=== PATIENT | female | born 1960 | race Hispanic/Latino ===

== ENCOUNTER 2016-03-29 13:15 | Emergency (ER) | payer OTHER ==
[~2016-03-29 13:15] MED LIST: ADVAIR 250-501 EACH INH; ALBUTEROL2.5 MG/3 M INH/SOL; ALENDRONATE SOD70 M2 PO; ATORVASTATIN CA20 M1 PO; CALCIUM + VITA1 EAC1 PO; CELEBREX100 M1 PO; CIPRO500 M1 PO; DICYCLOMINE HCL10 M1 PO; FLAGYL500 MG PO; HYDROXYZINE HCL25 M2 PO; LEVOTHYROXINE150 MCG PO; LISINOPRIL10 M1 PO; LOMOTIL 2.5-0.1 EACH PO; LYRICA50 M1 PO; METFORMIN HCL1000 M1 PO; METRONIDAZOLE250 M1 PO; MONTELUKAST SOD10 M1 PO; NASONEX17 GM NAS; PANTOPRAZOLE SO40 M1 PO; PERCOCET 5-3251 EACH PO; PRILOSEC OTC20 M1 PO; VICODIN 5-3001 EACH PO; ZOFRAN ODT4 M1 SL; ZOFRAN4 M2 PO
--- NOTE | 2016-03-29 13:42 | ED GI/GU/ABDOMINAL COMPLAINT ---
History of Present Illness General Chief Complaint: Nausea, Vomiting, Diarrhea Stated Complaint: NVD Source: patient, family, old records Exam Limitations: language barrier Allergies Coded Allergies: Penicillins (RASH AND ITCHING 10/17/15) shellfish derived (RASH ITCHING 10/17/15) Reconcile Medications Albuterol Sulfate 2.5 MG/3 ML VIAL.NEB 1 Vial INH/STEFAN Q6H RESPIRATORY ( Reported) Alendronate Sodium 70 MG TABLET 1 TAB PO QW BONE (Reported) in the morning, at least 30 minutes before the first food, beverage, or medication of the day Atorvastatin Calcium 20 MG TABLET 1 TAB PO QPM CHOLESTEROL (Reported) Calcium Carbonate/Vitamin D3 (Calcium + Vitamin D Tablet) 1 EACH TABLET 1 TAB PO BID SUPPLEMENT (Reported) Celecoxib (Celebrex) 100 MG CAPSULE 1 CAP PO BID PAIN (Reported) Dicyclomine Hydrochloride (Bentyl) 10 MG CAPSULE 1 CAP PO TID PRN abdominal cramping Dicyclomine Hydrochloride (Bentyl) 10 MG CAPSULE 1 CAP PO TID PRN abdominal cramping/pain Fluticasone Propionate (Flonase Allergy Relief) 50 MCG/ACTUATION SPRAY.SUSP ALLERGIES (Reported) Fluticasone/Salmeterol (Advair 250-50 Diskus) 1 EACH BLST.W.DEV 1 PUF INH BID RESPIRATORY (Reported) Hydrochlorothiazide 12.5 MG TABLET 1 TAB PO DAILY WATER PILL (Reported) Hydroxyzine HCl 25 MG TABLET 1 TAB PO 4 TIMES/DAY UNKNOWN (Reported) Levothyroxine Sodium 150 MCG TABLET 1 TAB PO DAILY AC THYROID (Reported) Lisinopril 10 MG TABLET 1 TAB PO DAILY BP (Reported) Metformin HCl 1,000 MG TABLET 1 TAB PO BID DIABETES (Reported) Montelukast Sodium 10 MG TABLET 1 TAB PO DAILY ALLERGIES/ASTHMA (Reported) Ondansetron (Zofran Odt) 4 MG TAB.RAPDIS 1 TAB SL TID PRN nausea Ondansetron (Zofran Odt) 4 MG TAB.RAPDIS 1 TAB SL TID PRN nausea Pantoprazole Sodium 40 MG TABLET.DR 1 TAB PO DAILY GI (Reported) Pregabalin (Lyrica) 50 MG CAPSULE 1 CAP PO BID PAIN (Reported) Tramadol HCl 50 MG TABLET 1-2 TAB PO Q6 PRN pain Tramadol HCl 50 MG TABLET 1-2 TAB PO Q6 PRN pain Triage Note: PT PRESENTS TO ER C/O OF DIARRHEA AND NAUSEA X 2 DAYS. PT ALSO C/O OF LUQ PAIN AND A HEADACHE Triage Nurses Notes Reviewed? yes ? n Is pt currently ? No HPI: Patient is a 55 year old female presents complaining of diarrhea x 3 dasy with left sided abdominal cramping. Associated nausea. Cramping is continuous, moderate, left lower quadrant. Approximately 7 episodes of watery stool with a small amount of blood present. Patient takes metformin, dose was increased 2 weeks ago. Otherwise no other recent changes in her medications. Patient has been on antibiotics within the past 1 month. Denies vomiting or fevers. (LILIA CHAVEZ) Vital Signs & Intake/Output Vital Signs & Intake/Output Vital Signs Date Time Temp Pulse Resp B/P Pulse O2 O2 Flow FiO2 Ox Delivery Rate 03/29 1850 97.4 68 16 121/57 98 03/29 1741 68 102/58 94 Room Air 03/29 1729 97.8 72 16 92/53 94 Room Air 03/29 1517 96.8 70 22 100/58 98 Room Air 03/29 1400 Room Air 03/29 1319 98.4 72 20 118/74 97 Room Air Past History Travel History Traveled to [place] past 21 day No Medical History Any Pertinent Medical History? see below for history Neurological: NONE EENT: NONE Cardiovascular: hyperlipidemia Respiratory: asthma Gastrointestinal: NONE Hepatic: NONE Renal: NONE Musculoskeletal: NONE Psychiatric: NONE Endocrine: diabetes, hypothyroidism Blood Disorders: NONE Cancer(s): NONE Surgical History Surgical History: non-contributory Psychosocial History What is your primary language Georgian Tobacco Use: Never used Family History Hx Contributory? No (LILIA CHAVEZ) Review of Systems Review of Systems Constitutional: Denies: chills, fever. EENTM: Reports: no symptoms. Respiratory: Denies: cough, short of breath. Cardiovascular: Denies: chest pain. GI: Reports: see HPI. Genitourinary: Reports: no symptoms. Musculoskeletal: Denies: back pain. Skin: Reports: no symptoms. Neurological/Psychological: Reports: no symptoms. Hematologic/Endocrine: Reports: no symptoms. Immunologic/Allergic: Reports: no symptoms. (LILIA CHAVEZ) Physical Exam Physical Exam General Appearance: well developed/nourished, alert, awake, obese Head: atraumatic, normal appearance Eyes: Bilateral: normal appearance, PERRL, EOMI. Ears, Nose, Throat, Mouth: hearing grossly normal, moist mucous membrane Neck: normal inspection, supple, full range of motion Respiratory: normal breath sounds, chest non-tender, no respiratory distress, lungs clear Cardiovascular: regular rate/rhythm Gastrointestinal: soft, HYPOACTIVE BOWEL SOUNDS, LEFT UPPER AND LEFT LOWER QUADRANT TENDERNESS. nO REBOUND OR GUARDING. Rectal: external hemorrhoid pink tender. Stool brown. Trace heme positive Back: normal inspection, normal range of motion Extremities: normal range of motion Neurologic/Psych: no motor/sensory deficits, awake, alert, oriented x 3, normal gait, normal mood/affect Skin: intact, normal color, warm/dry Core Measures ACS in differential dx? No Severe Sepsis Present: No Septic Shock Present: No (NEHA COLBERT,LILIA) Progress Differential Diagnosis: AAA, appendicitis, biliary colic, cholecystitis, diverticulitis, ischemic bowel, inflamm bowel dis, kidney stone, ovarian torsion , perforated viscous, UTI/pyelo Diagnostic Imaging: Viewed by Me: CT Scan. Discussed w/RAD: CT Scan. Radiology Impression: PATIENT: GIOVANNY OSCAR PRESENT AGE: 55 PATIENT ACCOUNT NO: [id number] : 58 LOCATION: [facility] ORDERING PHYSICIAN: LILIA COLBERT SERVICE DATE: 03/29/16970 EXAM TYPE: CAT - CT ABD & PELVIS W/O IV CONTRAS EXAMINATION: CT ABDOMEN AND PELVIS WITHOUT CONTRAST CLINICAL INFORMATION: Intra-abdominal infection. COMPARISON: CT scan abdomen pelvis 01/27/2016 TECHNIQUE: Multidetector volumetric imaging was performed from the superior aspect of the liver through the pubic symphysis. Sagittal and coronal reformatted images were obtained on the technologist's workstation. No oral or intravenous contrast. DLP: 1215.63 mGy-cm. FINDINGS: LUNG BASES: The visualized lung bases are unremarkable. LIVER, GALLBLADDER, AND BILIARY TREE: Diffuse low attenuation of liver parenchyma due to fatty change. Mild hepatomegaly. Right lobe of liver measures 22.6 cm superior inferior. No focal liver lesion. Gallbladder is absent. No bile duct dilatation PANCREAS: Unremarkable. SPLEEN: Unremarkable. ADRENAL GLANDS: Unremarkable. 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 The upper pole moiety in the lower pole moiety ureter diffuse at the mid abdomen with a single ureter entering the bladder trigone. No hydronephrosis. No renal or ureteral calculus. BLADDER: Punctate calcification associated with the wall at the dome of the bladder is unchanged since prior CAT scan. GASTROINTESTINAL TRACT: There is mild diverticulosis of the sigmoid colon. No diverticulitis. No acute change of the bowel. No bowel obstruction. No bowel wall thickening or edema. Moderate volume of stool in colon. The appendix is normal. The small bowel loops are unremarkable ABDOMINAL WALL: Small fat-containing umbilical hernia LYMPH NODES: Normal. VASCULAR: Unremarkable. PELVIC VISCERA: Uterus is absent. No adnexal abnormality. OSSEOUS STRUCTURES: Unremarkable. IMPRESSION: No acute abnormality CT scan abdomen pelvis. Hepatomegaly with diffuse fatty change of liver. DICTATED BY: KIMBER FARNSWORTH MD DATE/TIME DICTATED:03/29/161617 BATCH MIXER OPERATOR :[id number] DATE/TIME TRANSCRIBED:03/29/161617 CONFIDENTIAL, DO NOT COPY WITHOUT APPROPRIATE AUTHORIZATION. <Electronically signed in Other Vendor System> SIGNED BY: KIMBER FARNSWORTH MD 03/29/161627 Initial ED EKG: none (LILIA CHAVEZ) Plan of Care: Orders Procedure Date/time Status URINALYSIS 03/29 1741 Complete LACTIC ACID 03/29 1654 Complete CULTURE,STOOL 03/29 1354 Active C.DIFFICILE 03/29 1354 Active LACTIC ACID 03/29 1354 Complete COMPREHENSIVE METABOLIC PANEL 03/29 1354 Complete CBC WITHOUT DIFFERENTIAL 03/29 1354 Complete Laboratory Tests 03/29/16 1730: Urine Color YEL, Urine Clarity CLEAR, Urine pH 6.0, Ur Specific [place] >= 1.030 , Urine Protein NEG, Urine Ketones TRACE H, Urine Nitrite NEG, Urine Bilirubin NEG, Urine Urobilinogen 0.2, Ur Leukocyte Esterase NEG, Ur Microscopic SEDIMENT EXAMINED, Urine RBC RARE, Urine WBC 1-3 H, Ur Epithelial Cells MANY H, Urine Crystals 4+ CA OX H, Urine Hemoglobin TRACE-LYSED, Urine Glucose NEG 03/29/16 1650: Lactic Acid 2.3 H 03/29/16 1403: Anion Gap 11, Estimated GFR > 60, BUN/Creatinine Ratio 25.0, Glucose 136 H, Lactic Acid 3.1 H, Calcium 9.7, Total Bilirubin 0.3, AST 24, ALT 36, Alkaline Phosphatase 80, Total Protein 7.2, Albumin 4.1, Globulin 3.1, Albumin/Globulin Ratio 1.3, CBC w Diff NO MAN DIFF REQ, RBC 4.36, MCV 89.1, MCH 30.5, RDW 14.1, MPV 7.9, Gran % 60.2, Lymphocytes % 32.3, Monocytes % 6.5, Eosinophils % 0.8, Basophils % 0.2, Absolute Granulocytes 5.0, Absolute Lymphocytes 2.7, Absolute Monocytes 0.5, Absolute Eosinophils 0.1, Absolute Basophils 0, PUBS MCHC 34.2 Microbiology 03/29 135 STOOL: Clostridium difficile Toxin A & B - ORD 03/29 1353 STOOL: Stool Culture - ORD Patient reevaluated multiple times. With patient's elevated lactic acid CT scan ordered to rule out intra-abdominal infection 1739: Results of labs and CT scan discussed with patient and her . Patient continues with nausea, additional Zofran ordered. Patient in the emergency department for greater than 5.5 hours with no episodes of diarrhea. Patient nontoxic appearing, appears stable for discharge with outpatient follow-up (LILIA CHAVEZ) Departure Departure Time of Disposition: 1856 Disposition: HOME OR SELF CARE Condition: Stable Clinical Impression Primary Impression: Left sided abdominal pain Referrals: CHEYENNE GUZMAN,RUEL Mason. PATIENT HAS NO PRIMARY CARE DR (PCP/Family) Additional Instructions: Follow-up with her e tailer next week for further evaluation. Call Friday for appointment. Return to the emergency department if unable to stay hydrated, fevers, or worsening of symptoms. Departure Forms: Customer Survey General Discharge Information Prescriptions: Current Visit Scripts Tramadol HCl 1-2 TAB PO Q6 PRN pain #15 TAB Dicyclomine Hydrochloride (Bentyl) 1 CAP PO TID PRN abdominal cramping #12 CAP Ondansetron (Zofran Odt) 1 TAB SL TID PRN nausea #10 TAB Tramadol HCl 1-2 TAB PO Q6 PRN pain #15 TAB Ondansetron (Zofran Odt) 1 TAB SL TID PRN nausea #10 TAB Dicyclomine Hydrochloride (Bentyl) 1 CAP PO TID PRN abdominal cramping/pain #12 CAP (LILIA CHAVEZ) PA/ADJUNCT PROFESSOR OF [employer] HISTORY Co-Sign Statement Statement: ED Attending supervision documentation- [] I saw and evaluated the patient. I have also reviewed all the pertinent lab results and diagnostic results. I agree with the findings and the plan of care as documented in the PA's/ADJUNCT PROFESSOR OF [employer]ISTORY's documentation. [X] I have reviewed the ED Record and agree with the PA's/ADJUNCT PROFESSOR OF [employer] HISTORY's documentation. [] Additions or exceptions (if any) to the PAs/ADJUNCT PROFESSOR OF [employer]ISTORY's note and plan are summarized below: [] (MELIZA GUZMAN,MAMIE)
[2016-03-29 14:09] LABS: ABSOLUTE BASOPHIL COUNT 0 /CUMM (0.0-0.2); ABSOLUTE EOSINOPHIL COUNT 0.1 /CUMM (0.0-0.7); ABSOLUTE LYMPH COUNT 2.7 /CUMM (1.2-3.4); ABSOLUTE MONOCYTE COUNT 0.5 /CUMM (0.10-0.60); BASOPHIL % 0.2 % (0.0-2.0); EOSINOPHIL % 0.8 % (0-5); GRANULOCYTE % 60.2 % (42.2-75.2); HEMATOCRIT 38.8 % (37-47); MEAN CORPUSCULAR HGB 30.5 PG (27.0-31.0); MEAN CORPUSCULAR HGB CONC 34.2 G/DL (33.0-37.0); MEAN CORPUSCULAR VOLUME 89.1 FL (81.0-99.0); MEAN PLATELET VOLUME 7.9 FL (7.4-10.4); PLATELET COUNT 299 /CUMM (130-400); RBC DISTRIBUTION WIDTH 14.1 % (11.5-14.5); RED BLOOD CELL CT 4.36 /CUMM (4.20-5.40); WHITE BLOOD CELL COUNT 8.2 /CUMM (4.8-10.8)
[2016-03-29] MEDS ORDERED: HYDROCHLOROTH12.5 M2 PO (14:39)
[2016-03-29] MEDS ORDERED: FLONASE ALLERG9.9 ML (14:40)
--- NOTE | 2016-03-29 16:28 | CT SCAN REPORT ---
EXAMINATION: CT ABDOMEN AND PELVIS WITHOUT CONTRAST CLINICAL INFORMATION: Intra-abdominal infection. COMPARISON: CT scan abdomen pelvis 01/27/2016 TECHNIQUE: Multidetector volumetric imaging was performed from the superior aspect of the liver through the pubic symphysis. Sagittal and coronal reformatted images were obtained on the technologist's workstation. No oral or intravenous contrast. DLP: 1215.63 mGy-cm. FINDINGS: LUNG BASES: The visualized lung bases are unremarkable. LIVER, GALLBLADDER, AND BILIARY TREE: Diffuse low attenuation of liver parenchyma due to fatty change. Mild hepatomegaly. Right lobe of liver measures 22.6 cm superior inferior. No focal liver lesion. Gallbladder is absent. No bile duct dilatation PANCREAS: Unremarkable. SPLEEN: Unremarkable. ADRENAL GLANDS: Unremarkable. 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 The upper pole moiety in the lower pole moiety ureter diffuse at the mid abdomen with a single ureter entering the bladder trigone. No hydronephrosis. No renal or ureteral calculus. BLADDER: Punctate calcification associated with the wall at the dome of the bladder is unchanged since prior CAT scan. GASTROINTESTINAL TRACT: There is mild diverticulosis of the sigmoid colon. No diverticulitis. No acute change of the bowel. No bowel obstruction. No bowel wall thickening or edema. Moderate volume of stool in colon. The appendix is normal. The small bowel loops are unremarkable ABDOMINAL WALL: Small fat-containing umbilical hernia LYMPH NODES: Normal. VASCULAR: Unremarkable. PELVIC VISCERA: Uterus is absent. No adnexal abnormality. OSSEOUS STRUCTURES: Unremarkable. IMPRESSION: No acute abnormality CT scan abdomen pelvis. Hepatomegaly with diffuse fatty change of liver.
[2016-03-29 18:50] VITALS: BP 121/57
[2016-03-29] MEDS ORDERED: BENTYL10 M1 PO ×2 (18:59→19:13)
[2016-03-29] MEDS ORDERED: TRAMADOL HCL50 M1 PO ×2 (18:59→19:13)
[2016-03-29] MEDS ORDERED: ZOFRAN ODT4 M1 SL ×2 (18:59→19:13)
== END 2016-03-29 19:16 ==
LOC: ERH 13:15
PROVIDERS: Physician Assistant
DX: R10.12 Left upper quadrant pain (principal); R10.32 Left lower quadrant pain
CPT/HCPCS: 74176; 81001; 87045; 96372; 96374; 96375; 96376; J0500; J2405

== ENCOUNTER 2016-05-28 22:09 | Emergency (ER) | payer OTHER ==
[~2016-05-28] VITALS: Ht 152.4 cm; Wt 103.9 kg
[~2016-05-28 22:09] MED LIST changes: +BENTYL10 M1 PO; +FLONASE ALLERG9.9 ML; +HYDROCHLOROTH12.5 M2 PO; +TRAMADOL HCL50 M1 PO
[2016-05-28 22:44] VITALS: BP 122/74
--- NOTE | 2016-05-29 00:19 | ED UPPER/LOWER EXTREMITY COMPL ---
History of Present Illness General Chief Complaint: Lower Extremity Problems Stated Complaint: BILATERAL LEG PAIN AND BURNING KNEE TO FEET Source: patient Exam Limitations: no limitations Vital Signs & Intake/Output Vital Signs & Intake/Output Vital Signs Date Time Temp Pulse Resp B/P Pulse O2 O2 Flow FiO2 Ox Delivery Rate 05/29 0150 Room Air 05/28 2244 97.3 88 20 122/74 96 Room Air ED Intake and Output 05/29 0000 05/28 1200 Intake Total Output Total Balance Patient 229 lb Weight Allergies Coded Allergies: Penicillins (RASH AND ITCHING 10/17/15) shellfish derived (RASH ITCHING 10/17/15) Reconcile Medications Albuterol Sulfate 2.5 MG/3 ML VIAL.NEB 1 Vial INH/STEFAN Q6H RESPIRATORY ( Reported) Alendronate Sodium 70 MG TABLET 1 TAB PO QW BONE (Reported) in the morning, at least 30 minutes before the first food, beverage, or medication of the day Atorvastatin Calcium 20 MG TABLET 1 TAB PO QPM CHOLESTEROL (Reported) Calcium Carbonate/Vitamin D3 (Calcium + Vitamin D Tablet) 1 EACH TABLET 1 TAB PO BID SUPPLEMENT (Reported) Celecoxib (Celebrex) 100 MG CAPSULE 1 CAP PO BID PAIN (Reported) Dicyclomine Hydrochloride (Bentyl) 10 MG CAPSULE 1 CAP PO TID PRN abdominal cramping Dicyclomine Hydrochloride (Bentyl) 10 MG CAPSULE 1 CAP PO TID PRN abdominal cramping/pain Fluticasone Propionate (Flonase Allergy Relief) 50 MCG/ACTUATION SPRAY.SUSP ALLERGIES (Reported) Fluticasone/Salmeterol (Advair 250-50 Diskus) 1 EACH BLST.W.DEV 1 PUF INH BID RESPIRATORY (Reported) Hydrochlorothiazide 12.5 MG TABLET 1 TAB PO DAILY WATER PILL (Reported) Hydroxyzine HCl 25 MG TABLET 1 TAB PO 4 TIMES/DAY UNKNOWN (Reported) Levothyroxine Sodium 150 MCG TABLET 1 TAB PO DAILY AC THYROID (Reported) Lisinopril 10 MG TABLET 1 TAB PO DAILY BP (Reported) Metformin HCl 1,000 MG TABLET 1 TAB PO BID DIABETES (Reported) Montelukast Sodium 10 MG TABLET 1 TAB PO DAILY ALLERGIES/ASTHMA (Reported) Ondansetron (Zofran Odt) 4 MG TAB.RAPDIS 1 TAB SL TID PRN nausea Ondansetron (Zofran Odt) 4 MG TAB.RAPDIS 1 TAB SL TID PRN nausea Pantoprazole Sodium 40 MG TABLET.DR 1 TAB PO DAILY GI (Reported) Pregabalin (Lyrica) 50 MG CAPSULE 1 CAP PO BID PAIN (Reported) Tramadol HCl 50 MG TABLET 1-2 TAB PO Q6 PRN pain Tramadol HCl 50 MG TABLET 1-2 TAB PO Q6 PRN pain Triage Note: RECEIVED 55 YO FEMALE C/O PAIN ANDS BURNING FROM KNEE DOWN BILATERALLY, WORSE ON LEFT FOOT, STARTED TODAY. PT ALSO REPORTS DISCOLORATION. Triage Nurses Notes Reviewed? yes Onset: Gradual Duration: day(s): Severity: mild Pain/Injury Location: Left: Ankle. Method of Injury: unknown Modifying Factors: Worsens With: movement. Associated Symptoms: swelling HPI: 55yo woman left ankle pain and swelling since this morning. She notes that it is difficult to ambulate. She does not recall any trauma. She is otherwise well. Past History Travel History Traveled to [place] past 21 day No Medical History Any Pertinent Medical History? see below for history Neurological: NONE EENT: NONE Cardiovascular: hyperlipidemia Respiratory: asthma Gastrointestinal: NONE Hepatic: NONE Renal: NONE Musculoskeletal: NONE Psychiatric: NONE Endocrine: diabetes, hypothyroidism Blood Disorders: NONE Cancer(s): NONE Surgical History Surgical History: non-contributory Psychosocial History What is your primary language Irish Tobacco Use: Never used Family History Hx Contributory? No Review of Systems Review of Systems Constitutional: Reports: no symptoms. EENTM: Reports: no symptoms. Respiratory: Reports: no symptoms. Cardiovascular: Reports: no symptoms. Gastrointestinal/Abdominal: Reports: no symptoms. Genitourinary: Reports: no symptoms. Musculoskeletal: Reports: no symptoms. Skin: Reports: no symptoms. Neurological/Psychological: Reports: no symptoms. Hematologic/Endocrine: Reports: no symptoms. Immunological: Reports: no symptoms. All Other Systems: Reviewed and Negative Physical Exam Physical Exam General Appearance: well developed/nourished, mild distress Head: atraumatic Eyes: Bilateral: normal appearance. Ears, Nose, Throat: normal pharynx, normal ENT inspection, hearing grossly normal Neck: normal inspection, supple Cardiovascular/Respiratory: regular rate/rhythm Back: normal inspection Leg Left: left ankle... diffuse swelling with tenderness on lateral mallolus. pain with inversion of left ankle. Skin: intact, normal color, warm/dry Lymphatic: no anterior cervical abbi Progress Differential Diagnosis: contusion, fracture, sprain Plan of Care: Orders Procedure Date/time Status Durable Medical Equipment 05/29 125 Active Diagnostic Imaging: Viewed by Me: Radiology Read. Discussed w/RAD: Radiology Read. Radiology Impression: LEFT ANKLE... NEGATIVE Comments: PATIENT: GIOVANNY OSCAR PRESENT AGE: 55 PATIENT ACCOUNT NO: [id number] : 58 LOCATION: [facility] ORDERING PHYSICIAN: BLANCA ALFRED MD SERVICE DATE: 05/29/16 EXAM TYPE: RAD - XRY-ANKLE 3 OR MORE VIEWS L EXAMINATION: XR ANKLE, LEFT CLINICAL INFORMATION: Left ankle pain. COMPARISON: None TECHNIQUE: AP, lateral, and mortise views of the left ankle. FINDINGS: No fracture. No dislocation. Ankle mortise is congruent. No soft tissue abnormality. IMPRESSION: Normal left ankle. DICTATED BY: KIMBER FARNSWORTH MD DATE/TIME DICTATED:05/29/1658 BODYWORK THERAPIST:[id number] DATE/TIME TRANSCRIBED:05/29/1658 CONFIDENTIAL, DO NOT COPY WITHOUT APPROPRIATE AUTHORIZATION. <Electronically signed in Other Vendor System> SIGNED BY: KIMBER FARNSWORTH MD 05/29/16102 Departure Departure Disposition: HOME OR SELF CARE Condition: Stable Clinical Impression Primary Impression: Left ankle sprain Referrals: ALO VALENTINO MD (PCP/Family) Departure Forms: Customer Survey General Discharge Information Comments mary bandage placed on left ankle by nursing team.
--- NOTE | 2016-05-29 01:03 | RADIOLOGY REPORT ---
EXAMINATION: XR ANKLE, LEFT CLINICAL INFORMATION: Left ankle pain. COMPARISON: None TECHNIQUE: AP, lateral, and mortise views of the left ankle. FINDINGS: No fracture. No dislocation. Ankle mortise is congruent. No soft tissue abnormality. IMPRESSION: Normal left ankle.
== END 2016-05-29 01:57 ==
LOC: ERH 22:09
DX: S93.402A Sprain of unspecified ligament of left ankle, initial encounter (principal); X58.XXXA Exposure to other specified factors, initial encounter; Y93.9 Activity, unspecified; Y92.9 Unspecified place or not applicable
CPT/HCPCS: 73610-LT

== ENCOUNTER 2016-07-22 16:05 | Emergency (ER) | payer OTHER ==
[~2016-07-22] VITALS: Ht 152.4 cm; Wt 108.0 kg
--- NOTE | 2016-07-22 16:35 | ED GENERAL ADULT ---
History of Present Illness General Chief Complaint: General Adult Stated Complaint: FACIAL NUMBNESS,LT ARM NUMBNESS,LUND X 1.5 HRS Source: patient, family Exam Limitations: no limitations Vital Signs & Intake/Output Vital Signs & Intake/Output Vital Signs Date Time Temp Pulse Resp B/P B/P Pulse O2 O2 Flow FiO2 Mean Ox Delivery Rate 07/22 1842 97.4 70 18 110/66 98 Room Air 07/22 1728 Room Air Room Air 07/22 1613 98.1 78 16 137/83 96 Room Air Allergies Coded Allergies: Penicillins (RASH AND ITCHING 10/17/15) shellfish derived (RASH ITCHING 10/17/15) Reconcile Medications Albuterol Sulfate 2.5 MG/3 ML VIAL.NEB 1 Vial INH/STEFAN Q6H RESPIRATORY ( Reported) Alendronate Sodium 70 MG TABLET 1 TAB PO QW BONE (Reported) in the morning, at least 30 minutes before the first food, beverage, or medication of the day Atorvastatin Calcium 20 MG TABLET 1 TAB PO QPM CHOLESTEROL (Reported) Calcium Carbonate/Vitamin D3 (Calcium + Vitamin D Tablet) 1 EACH TABLET 1 TAB PO BID SUPPLEMENT (Reported) Celecoxib (Celebrex) 100 MG CAPSULE 1 CAP PO BID PAIN (Reported) Dicyclomine Hydrochloride (Bentyl) 10 MG CAPSULE 1 CAP PO TID PRN abdominal cramping Dicyclomine Hydrochloride (Bentyl) 10 MG CAPSULE 1 CAP PO TID PRN abdominal cramping/pain Fluticasone Propionate (Flonase Allergy Relief) 50 MCG/ACTUATION SPRAY.SUSP ALLERGIES (Reported) Fluticasone/Salmeterol (Advair 250-50 Diskus) 1 EACH BLST.W.DEV 1 PUF INH BID RESPIRATORY (Reported) Hydrochlorothiazide 12.5 MG TABLET 1 TAB PO DAILY WATER PILL (Reported) Hydroxyzine HCl 25 MG TABLET 1 TAB PO 4 TIMES/DAY UNKNOWN (Reported) Levothyroxine Sodium 150 MCG TABLET 1 TAB PO DAILY AC THYROID (Reported) Lisinopril 10 MG TABLET 1 TAB PO DAILY BP (Reported) Metformin HCl 1,000 MG TABLET 1 TAB PO BID DIABETES (Reported) Montelukast Sodium 10 MG TABLET 1 TAB PO DAILY ALLERGIES/ASTHMA (Reported) Ondansetron (Zofran Odt) 4 MG TAB.RAPDIS 1 TAB SL TID PRN nausea Ondansetron (Zofran Odt) 4 MG TAB.RAPDIS 1 TAB SL TID PRN nausea Pantoprazole Sodium 40 MG TABLET. 1 TAB PO DAILY GI (Reported) Pregabalin (Lyrica) 50 MG CAPSULE 1 CAP PO BID PAIN (Reported) Tramadol HCl 50 MG TABLET 1-2 TAB PO Q6 PRN pain Tramadol HCl 50 MG TABLET 1-2 TAB PO Q6 PRN pain Triage Note: PT STATES SHE HAS HAD NUMBNESS AND BURNING FRO HER LEFT SHOULDER INTO HER ARMS. PT STATES SHE ALSO HAS A LUND THAT STARTED 1.5 HOURS AGO. PT HAS NOT CHANGE IN HER GAIT. BILAT UPPER EXT. HAS NO WEAKNESS. Triage Nurses Notes Reviewed? yes Onset: 2 hours ago Duration: hour(s):, constant Timing: single episode today HPI: 55-year-old female with a history of hyperlipidemia, asthma, diabetes, hypothyroid presenting with parietal headache, bilateral facial paresthesias, left upper extremity paresthesias of gradual onset 2 hours. Denies fevers, visual changes, weakness, lightheadedness, dizziness, chest pain, shortness of breath, nausea, vomiting. Has not tried anything for pain relief. (TAINA DONNELLY,BART) Past History Travel History Traveled to [place] past 21 day No Medical History Any Pertinent Medical History? see below for history Neurological: NONE EENT: NONE Cardiovascular: hyperlipidemia Respiratory: asthma Gastrointestinal: NONE Hepatic: NONE Renal: NONE Musculoskeletal: NONE Psychiatric: NONE Endocrine: diabetes, hypothyroidism Blood Disorders: NONE Cancer(s): NONE Surgical History Surgical History: non-contributory Psychosocial History What is your primary language French Tobacco Use: Never used ETOH Use: denies use Illicit Drug Use: denies illicit drug use Family History Hx Contributory? No (BART HER PA-C) Review of Systems Review of Systems Constitutional: Denies: chills, diaphoresis, fever, malaise, weakness. EENTM: Denies: blurred vision, double vision, visual changes, hearing changes. Respiratory: Denies: cough, short of breath, sputum production. Cardiovascular: Denies: chest pain, syncope. GI: Denies: abdominal pain, diarrhea, nausea, vomiting. Neurological/Psychological: Reports: headache, paresthesia, tingling. Denies: numbness. (BART HER PA-C) Physical Exam Physical Exam General Appearance: well developed/nourished, no apparent distress Head: atraumatic, no TTP Ears, Nose, Throat: normal ENT inspection Respiratory: normal breath sounds, lungs clear Cardiovascular: regular rate/rhythm Neurologic/Psych: no motor/sensory deficits, alert, oriented x 3, normal gait, Decreased facial sensation bilaterally, no other cranial nerve deficits Core Measures ACS in differential dx? Yes CVA/TIA Diagnosis: Yes Severe Sepsis Present: No Septic Shock Present: No (BART HER PA-C) Progress Differential Diagnoses I considered the following diagnoses in my evaluation of the patient: [Complex migraine versus TIA versus CVA versus Riggins's palsy versus trigeminal neuralgia versus MN.] Plan of Care: Orders Procedure Date/time Status EKG 07/22 1656 Active EKG to rule out cardiac etiology for left upper extremity paresthesias showed nonspecific T-wave inversions that are unchanged from prior EKG. Patient has complete resolution of symptoms after IV fluids, Toradol, Benadryl, Reglan. Patient likely with complex migraine, instructed to follow up with primary care provider for reevaluation. (BART HER PA-C) Initial ED EKG: normal sinus rhythm, Non specific T wave inversion unchanged from prior EKG (BART HER PA-C) Departure Departure Disposition: HOME OR SELF CARE Condition: Stable Clinical Impression Primary Impression: Headache Secondary Impressions: Paresthesia Referrals: ALO VALENTINO MD (PCP/Family) Additional Instructions: Follow-up with your primary care provider for reevaluation. Return to the ED for any new or worsening symptoms. Departure Forms: Customer Survey General Discharge Information (BART HER PA-C) PA/METAL ENGRAVER Co-Sign Statement Statement: ED Attending supervision documentation- [] I saw and evaluated the patient. I have also reviewed all the pertinent lab results and diagnostic results. I agree with the findings and the plan of care as documented in the PA's/METAL ENGRAVER's documentation. [x] I have reviewed the ED Record and agree with the PA's/METAL ENGRAVER's documentation. [] Additions or exceptions (if any) to the PAs/METAL ENGRAVER's note and plan are summarized below: [] (ANNA BUCKNER DO) Critical Care Note Critical Care Note Critical Care Time: non-applicable (BART HER PA-C)
[2016-07-22 18:42] VITALS: BP 110/66
== END 2016-07-22 19:06 ==
LOC: ERH 16:05
DX: R51 Headache (principal); R20.2 Paresthesia of skin
CPT/HCPCS: 93005; 93010; 96374; 96375; J1200; J1885; J2765

== ENCOUNTER 2016-08-14 12:15 | Emergency (ER) | payer OTHER ==
[~2016-08-14] VITALS: Ht 152.4 cm; Wt 101.2 kg
[2016-08-14 12:22] VITALS: BP 120/80
--- NOTE | 2016-08-14 12:26 | ED GENERAL ADULT ---
See Addendum History of Present Illness General Chief Complaint: Trunk Injury Stated Complaint: BILATERAL RIB PAIN Source: patient Exam Limitations: language barrier Vital Signs & Intake/Output Vital Signs & Intake/Output ED Intake and Output 08/15 0000 08/14 1200 Intake Total Output Total Balance Patient 223 lb Weight Weight Estimated Measurement Method Allergies Coded Allergies: Penicillins (RASH AND ITCHING 10/17/15) shellfish derived (RASH ITCHING 10/17/15) Reconcile Medications Albuterol Sulfate 2.5 MG/3 ML VIAL.NEB 1 Vial INH/STEFAN Q6H RESPIRATORY ( Reported) Alendronate Sodium 70 MG TABLET 1 TAB PO QW BONE (Reported) in the morning, at least 30 minutes before the first food, beverage, or medication of the day Atorvastatin Calcium 20 MG TABLET 1 TAB PO QPM CHOLESTEROL (Reported) Calcium Carbonate/Vitamin D3 (Calcium + Vitamin D Tablet) 1 EACH TABLET 1 TAB PO BID SUPPLEMENT (Reported) Celecoxib (Celebrex) 100 MG CAPSULE 1 CAP PO BID PAIN (Reported) Dicyclomine Hydrochloride (Bentyl) 10 MG CAPSULE 1 CAP PO TID PRN abdominal cramping/pain Fluticasone/Salmeterol (Advair 250-50 Diskus) 1 EACH BLST.W.DEV 1 PUF INH BID RESPIRATORY (Reported) Hydrochlorothiazide 12.5 MG TABLET 1 TAB PO DAILY WATER PILL (Reported) Hydroxyzine HCl 25 MG TABLET 1 TAB PO 4 TIMES/DAY UNKNOWN (Reported) Levothyroxine Sodium 150 MCG TABLET 1 TAB PO DAILY AC THYROID (Reported) Lisinopril 10 MG TABLET 1 TAB PO DAILY BP (Reported) Metformin HCl 1,000 MG TABLET 1 TAB PO BID DIABETES (Reported) Montelukast Sodium 10 MG TABLET 1 TAB PO DAILY ALLERGIES/ASTHMA (Reported) Naproxen (Naprosyn) 500 MG TABLET 1 TAB PO BID PRN pain Ondansetron (Zofran Odt) 4 MG TAB.RAPDIS 1 TAB SL TID PRN nausea Pantoprazole Sodium 40 MG TABLET.DR 1 TAB PO DAILY GI (Reported) Pregabalin (Lyrica) 50 MG CAPSULE 1 CAP PO BID PAIN (Reported) Tramadol HCl 50 MG TABLET 1-2 TAB PO Q6 PRN pain Triage Note: PT TO ED C/O PAIN UNDER B/L RIBS. STARTED LAST NIGHT, WORSE TODAY. DENIES INJURY. RA SATS 98%,NO OBVIOUS RESP DISTRESS NOTED. Triage Nurses Notes Reviewed? yes HPI: 55 year old female with a history of hyperlipidemia, diabetes, hypothyroid presenting with nonradiating pleuritic chest pain over the anterior lower ribs since last night. Denies trauma to the area. Has tried Tylenol with minimal improvement. Denies fevers, cough, sputum, chest tightness, shortness of breath. Denies abdominal pain, nausea, vomiting. (BART HER PA-C) Past History Travel History Traveled to [place] past 21 day No Medical History Any Pertinent Medical History? see below for history Neurological: NONE EENT: NONE Cardiovascular: hyperlipidemia Respiratory: asthma Gastrointestinal: NONE Hepatic: NONE Renal: NONE Musculoskeletal: NONE Psychiatric: NONE Endocrine: diabetes, hypothyroidism Blood Disorders: NONE Cancer(s): NONE Surgical History Surgical History: non-contributory Psychosocial History What is your primary language Ecuadorean Tobacco Use: Never used ETOH Use: denies use Illicit Drug Use: denies illicit drug use Family History Hx Contributory? No (BART HER PA-C) Review of Systems Review of Systems Constitutional: Denies: chills, fever, malaise, weakness. Respiratory: Denies: cough, hemoptysis, orthopnea, short of breath, sputum production, wheezing. Cardiovascular: Reports: chest pain. Denies: edema, orthopena, palpitations, syncope. GI: Reports: no symptoms. Genitourinary: Reports: no symptoms. Skin: Reports: no symptoms. Neurological/Psychological: Reports: no symptoms. (BART HER PA-C) Physical Exam Physical Exam General Appearance: well developed/nourished, no apparent distress, comfortable Head: atraumatic Respiratory: normal breath sounds, lungs clear, CW is sifnificantly TTP over bilateral anterior lower ribs/intercostal muscles, no abrasions/ecchymosis/other signs of trauma. Cardiovascular: regular rate/rhythm, normal peripheral pulses Gastrointestinal: normal bowel sounds, soft, non-tender Neurologic/Psych: awake, alert, oriented x 3 Skin: intact, normal color, warm/dry Core Measures ACS in differential dx? No CVA/TIA Diagnosis: No Severe Sepsis Present: No Septic Shock Present: No (BART HER PA-C) Progress Differential Diagnoses I considered the following diagnoses in my evaluation of the patient: [Muscle strain versus costochondritis versus pneumonia versus pleural effusion versus pleurisy versus cholecystitis versus cholelithiasis versus pancreatitis discovered versus gastritis] Plan of Care: Orders Procedure Date/time Status LIPASE 08/14 1313 Complete COMPREHENSIVE METABOLIC PANEL 08/14 1313 Complete CBC WITHOUT DIFFERENTIAL 08/14 1313 Complete EKG 08/14 1223 Active Laboratory Tests 08/14/16 1334: Anion Gap 16, Estimated GFR > 60, BUN/Creatinine Ratio 20.0, Glucose 157 H, Calcium 10.5 H, Total Bilirubin 0.4, AST 30, ALT 40, Alkaline Phosphatase 110, Total Protein 7.9, Albumin 4.6, Globulin 3.3, Albumin/Globulin Ratio 1.4, Lipase 118, CBC w Diff NO MAN DIFF REQ, RBC 4.60, MCV 89.7, MCH 30.0, RDW 14.1, MPV 8.1 , Gran % 58.5, Lymphocytes % 33.3, Monocytes % 6.5, Eosinophils % 0.6, Basophils % 1.1, Absolute Granulocytes 4.6, Absolute Lymphocytes 2.6, Absolute Monocytes 0.5, Absolute Eosinophils 0, Absolute Basophils 0.1, PUBS MCHC 33.5 Chest x-ray and labs unremarkable. Patient with significant pain relief after Toradol. Exam consistent with musculoskeletal pain. Instructed to use naproxen as needed for pain. (BART HER PA-C) Initial ED EKG: none (BART HER PA-C) Departure Departure Disposition: HOME OR SELF CARE Condition: Stable Clinical Impression Primary Impression: Muscle strain Referrals: ALO VALENTINO MD (PCP/Family) Additional Instructions: Use 500 mg of naproxen twice daily as needed for pain. Follow-up with her primary care provider in one to 2 days for reevaluation. Return to the ED for any worsening symptoms. Departure Forms: Customer Survey General Discharge Information Prescriptions: Current Visit Scripts Naproxen (Naprosyn) 1 TAB PO BID PRN pain #60 TAB (BART HER PA-C) PA/SKIN PEELING MACHINE OPERATOR Co-Sign Statement Statement: ED Attending supervision documentation- I saw and evaluated the patient. I have also reviewed all the pertinent lab results and diagnostic results. I agree with the findings and the plan of care as documented in the PA's/SKIN PEELING MACHINE OPERATOR's documentation. x I have reviewed the ED Record and agree with the PA's/SKIN PEELING MACHINE OPERATOR's documentation. [] Additions or exceptions (if any) to the PAs/SKIN PEELING MACHINE OPERATOR's note and plan are summarized below: [] (EDGAR GUZMAN,COMFORT) Critical Care Note Critical Care Note Critical Care Time: non-applicable (TAINA DONNELLY,BART)
[2016-08-14 13:42] LABS: ABSOLUTE BASOPHIL COUNT 0.1 /CUMM (0.0-0.2); ABSOLUTE EOSINOPHIL COUNT 0 /CUMM (0.0-0.7); ABSOLUTE GRANULOCYTE CT 4.6 /CUMM (1.4-6.5); ABSOLUTE LYMPH COUNT 2.6 /CUMM (1.2-3.4); ABSOLUTE MONOCYTE COUNT 0.5 /CUMM (0.10-0.60); BASOPHIL % 1.1 % (0.0-2.0); EOSINOPHIL % 0.6 % (0-5); GRANULOCYTE % 58.5 % (42.2-75.2); HEMATOCRIT 41.3 % (37-47); MEAN CORPUSCULAR HGB CONC 33.5 G/DL (33.0-37.0); MEAN CORPUSCULAR VOLUME 89.7 FL (81.0-99.0); MEAN PLATELET VOLUME 8.1 FL (7.4-10.4); PLATELET COUNT 367 /CUMM (130-400); RBC DISTRIBUTION WIDTH 14.1 % (11.5-14.5); WHITE BLOOD CELL COUNT 7.9 /CUMM (4.8-10.8)
--- NOTE | 2016-08-14 13:46 | RADIOLOGY REPORT ---
EXAMINATION: XR CHEST CLINICAL INFORMATION: Pleuritic chest pain over the anterior lower ribs. COMPARISON: CT scan of abdomen and pelvis 03/29/2016. TECHNIQUE: 2 views of the chest were obtained. FINDINGS: Lungs are well-expanded. No focal consolidative disease, pleural effusion, or pneumothorax. The cardiac silhouette and upper mediastinal contours are normal. No acute osseous finding. IMPRESSION: Normal chest radiograph.
[2016-08-14] MEDS ORDERED: NAPROSYN500 M1 PO (15:04)
== END 2016-08-14 15:13 ==
LOC: ERH 12:15
PROVIDERS: Physician Assistant
DX: S29.011A Strain of muscle and tendon of front wall of thorax, initial encounter (principal); R07.89 Other chest pain; X58.XXXA Exposure to other specified factors, initial encounter
CPT/HCPCS: 93005; 93010; 96374; J1885

== ENCOUNTER 2016-09-25 13:54 | Observation (INO) | payer OTHER ==
[~2016-09-25] VITALS: Ht 152.4 cm; Wt 103.4 kg
[~2016-09-25 13:54] MED LIST changes: +NAPROSYN500 M1 PO
--- NOTE | 2016-09-25 14:17 | NUR ---
55 Y/O FEMALE C/O DIZZINESS, N/V SINCE WAKING THIS MORNING. "WAS FINE" YESTERDAY, WOKE TODAY AND BEGAN TO FEEL VERY DIZZY. STATES SHE LOST HER BALANCE AND FELL INTO THE WALL CAUSING A SMALL HEMATOMA TO R FOREHEAD. PT DENIES FALLING TO GROUND WITH HEAD STRUCK. UNSURE OF LOC. STATES SHE HAS CONTINUED TO FEEL DIZZY AND NAUSEOUS THROUGHOUT THE DAY. +VOMITING. DENIES URINARY S SYMPTOMS. DENIES FEVERS. INTERMITTENT MID ABDOMINAL PAIN. HX DIABETES, TAKES METFORMIN AT HOME. FINGERSTICK 187
--- NOTE | 2016-09-25 14:25 | NUR ---
URINE SENT - CLEAR YELLOW URINE OBTAINED.
--- NOTE | 2016-09-25 14:42 | ED GENERAL ADULT ---
History of Present Illness General Chief Complaint: Nausea, Vomiting, Diarrhea Stated Complaint: NVD Source: patient, family Exam Limitations: language barrier Vital Signs & Intake/Output Vital Signs & Intake/Output Vital Signs Date Time Temp Pulse Resp B/P B/P Pulse O2 O2 Flow FiO2 Mean Ox Delivery Rate 09/25 2044 96.9 69 20 118/62 95 Room Air 09/25 1900 96.5 66 20 122/69 97 Room Air 09/25 1653 71 15 112/69 95 Room Air 09/25 1411 97.3 81 18 122/73 97 Room Air Allergies Coded Allergies: Penicillins (RASH AND ITCHING 10/17/15) shellfish derived (RASH ITCHING 10/17/15) Triage Note: 55 Y/O FEMALE C/O DIZZINESS, N/V SINCE WAKING THIS MORNING. "WAS FINE" YESTERDAY, WOKE TODAY AND BEGAN TO FEEL VERY DIZZY. STATES SHE LOST HER BALANCE AND FELL INTO THE WALL CAUSING A SMALL HEMATOMA TO R FOREHEAD. PT DENIES FALLING TO GROUND WITH HEAD STRUCK. UNSURE OF LOC. STATES SHE HAS CONTINUED TO FEEL DIZZY AND NAUSEOUS THROUGHOUT THE DAY. +VOMITING. DENIES URINARY S SYMPTOMS. DENIES FEVERS. INTERMITTENT MID ABDOMINAL PAIN. HX DIABETES, TAKES METFORMIN AT HOME. FINGERSTICK 187 Triage Nurses Notes Reviewed? yes Onset: Gradual Duration: hour(s): (8) Injury Environment: home Severity: moderate No Modifying Factors: none Associated Symptoms: N/V HPI: Patient is a 55 old female with history of diabetes presenting to the emergency Department chief complaint of epigastric pain, nausea or vomiting with secondary dizziness that started this morning after breakfast. She reports that dizziness gets worse with positional changes and when she moves her head. She feels like the room is spinning. No history of similar symptoms in the past. She reports that she vomited approximately 3-4 times. Vomiting was nonbloody nonbilious. Denies diarrhea. Pain in the epigastric region does not radiate. He has tried Pepto-Bismol at home without relief. Per family patient got up after nausea and vomiting and then became dizzy and hit her head into the wall. Family reports questionable LOC for several seconds. Positive family history for CVA and TN on her mother's side. (ANNABELLE COLBERT,MODESTO) Reconcile Medications Alendronate Sodium 70 MG TABLET 1 TAB PO QW BONE (Reported) in the morning, at least 30 minutes before the first food, beverage, or medication of the day Atorvastatin Calcium 20 MG TABLET 1 TAB PO QPM CHOLESTEROL (Reported) Calcium Carbonate/Vitamin D3 (Calcium + Vitamin D Tablet) 1 EACH TABLET 1 TAB PO BID SUPPLEMENT (Reported) Eluxadoline (Viberzi) 75 MG TABLET 1 TAB PO BID GI (Reported) Gabapentin 300 MG CAPSULE 1 CAP PO TID NEUROPATHY (Reported) Hydrochlorothiazide 12.5 MG TABLET 1 TAB PO DAILY WATER PILL (Reported) Levothyroxine Sodium 150 MCG TABLET 1 TAB PO DAILY AC THYROID (Reported) Lisinopril 10 MG TABLET 1 TAB PO DAILY BP (Reported) Metformin HCl 1,000 MG TABLET 1 TAB PO BID DIABETES (Reported) Montelukast Sodium 10 MG TABLET 1 TAB PO DAILY ALLERGIES/ASTHMA (Reported) Travoprost (Travatan Z) 0.004 % DROPS 1 GTT OU QPM BOTH EYES (Reported) (MATT GUZMAN,PATIENCE Todd) Past History Travel History Traveled to [place] past 21 day No Medical History Any Pertinent Medical History? see below for history Neurological: NONE EENT: NONE Cardiovascular: hyperlipidemia Respiratory: asthma Gastrointestinal: NONE Hepatic: NONE Renal: NONE Musculoskeletal: NONE Psychiatric: NONE Endocrine: diabetes, hypothyroidism Blood Disorders: NONE Cancer(s): NONE Surgical History Surgical History: non-contributory Psychosocial History What is your primary language Slovenian Tobacco Use: Never used Family History Hx Contributory? No (MODESTO WANG) Review of Systems Review of Systems Constitutional: Reports: no symptoms. Comments Review of systems: See HPI, All other systems negative. Constitutional, no chills fever or weight loss HEENT: No visual changes no sore throat no congestion Cardiovascular: No chest pain ,palpitation , orthopnea or ankle swelling Skin, no jaundice no rashes Respiratory: No dyspnea cough sputum or hemoptysis GI: POS N/V : No dysuria No hematuria Muscle skeletal: no back pain, no neck pain, Neurologic: No numbness no confusion Psych: No stress anxiety or depression,. Heme/endocrine: No bruising no bleeding no polyuria or polydipsia Immunology: No splenectomy or history of AIDS (MODESTO WANG) Physical Exam Physical Exam General Appearance: well developed/nourished, no apparent distress, alert, awake , comfortable Comments: Obese person in no acute distress HEENT: extraocular motion intact, no nystagmus. Pupils equally round and reactive to light and accommodation. Nose is atraumatic. External auditory canal and Tympanic membranes clear. Pharynx normal. No swelling or edema. Reproducible dizziness with positional changes of the head. Neck: Supple, no lymphadenopathy, normal range of motion without pain or tenderness Back: Nontender, no CVA tenderness. Full range of motion Cardiovascular: Regular rate and rhythms no murmurs rubs or gallops, normal JVP Respiratory: Chest nontender. No respiratory distress.breath sounds clear to auscultation bilaterally Abdomen: Soft, nontender nondistended, no appreciable organomegaly. Normal bowel sounds. No ascites, obese, tender to palpation in epigastric region, no rebound or guarding. Extremity: No edema, no calf tenderness to palpation, normal and equal pulses. Neuro: Alert oriented x3, motor sensory normal, cranial nerves II through XII grossly intact. Cerebellar testing is unremarkable. Skin: No appreciable rash on exposed skin, skin is warm and dry. Psych: Mood and affect is normal, memory and judgment is normal. Core Measures ACS in differential dx? Yes CVA/TIA Diagnosis: No Severe Sepsis Present: No Septic Shock Present: No (ANNABELLE COLBERT,MODESTO) Progress Differential Diagnoses I considered the following diagnoses in my evaluation of the patient: CVA, TIA, orthostatic hypotension, ACS, hypoglycemia, hyperglycemia, vertigo, intracranial hemorrhage, dehydration, electrolyte abnormality Plan of Care: Orders Procedure Date/time Status Heart Healthy Diet 09/26 B Active TROPONIN LEVEL 09/26 0600 Active CBC WITHOUT DIFFERENTIAL 09/26 0600 Active BASIC ELECTROLYTES PLUS BUN&CR 09/26 0600 Active EKG 09/26 0600 Active Consistent Carbohydrate 3 09/25 D Complete TROPONIN LEVEL 09/25 2300 Active EKG 09/25 2300 Active Teach/Educate 09/26 2111 Active Pain Treatment and Response 09/26 2111 Active Nutritional Intake, Monitor 09/26 2111 Active Isolation 09/26 2111 Active Patient Care Conference 09/26 2111 Active Activity/Ambulation 09/26 2111 Active Pathway - chart 09/25 2052 Active House Staff 09/25 2052 Active Patient Data 09/25 1723 Active ED Holding Orders 09/25 1721 Active Vital Signs 09/25 1721 Active Code Status 09/[address] in observation 09/25 1623 Active Add-on Test (ER Only) 09/25 1509 Active MISTAKE 09/25 1505 Active Telemetry/Fire Eater 09/25 1505 Active TROPONIN LEVEL 09/25 1505 Complete PROTHROMBIN TIME 09/25 1505 Complete LIPASE 09/25 1505 Complete COMPREHENSIVE METABOLIC PANEL 09/25 1505 Complete CBC WITHOUT DIFFERENTIAL 09/25 1505 Complete Intake & Output 09/25 1501 Active EKG 09/25 1442 Active URINALYSIS 09/25 1420 Complete FingerStick- Glucose 09/25 1415 Active VTE Mechanical Prophylaxis 09/25 UNK Active Hemoccult 09/25 UNK Active Current Medications Sig/Audelia Start time Last Medication Dose Stop Time Status Admin Lisinopril 10 MG DAILY 09/26 1000 AC (Prinivil) Insulin Aspart 0 TIDAC 09/26 0800 UNVr (NovoLOG) Levothyroxine Sodium 0.15 MG DAILY AC 09/26 0700 AC (Synthroid) Atorvastatin Calcium 20 MG QPM 09/25 2200 AC (Lipitor) Gabapentin 300 MG TID 09/25 2200 AC (Neurontin) Omeprazole 40 MG BID 09/25 2200 AC (Prilosec) Acetaminophen 650 MG Q6P PRN 09/25 2100 UNVr (Tylenol) Acetaminophen/ 1 TAB Q6P PRN 09/25 2100 UNVr Hydrocodone Bitart (Vicodin) Oxycodone/ 2 TAB Q6P PRN 09/25 2100 UNVr Acetaminophen (Percocet) Enoxaparin Sodium 40 MG DAILY 09/26 2051 UNVr (Lovenox) Ondansetron HCl 4 MG Q6P PRN 09/25 2044 UNVr (Zofran) Laboratory Tests 09/25/16 1533: Anion Gap 13, Estimated GFR > 60, BUN/Creatinine Ratio 18.6, Glucose 124 H, Calcium 10.1, Total Bilirubin 0.4, AST 21, ALT 33, Alkaline Phosphatase 69, Troponin I < 0.01, Total Protein 7.1, Albumin 4.2, Globulin 2.9, Albumin/ Globulin Ratio 1.4, Lipase 52, PT 10.7, INR 1.02, CBC w Diff NO MAN DIFF REQ, RBC 4.46, MCV 89.3, MCH 29.9, RDW 14.1, MPV 8.3, Gran % 56.0, Lymphocytes % 36.3 , Monocytes % 6.9, Eosinophils % 0.5, Basophils % 0.3, Absolute Granulocytes 5.6 , Absolute Lymphocytes 3.6 H, Absolute Monocytes 0.7 H, Absolute Eosinophils 0.1, Absolute Basophils 0, PUBS MCHC 33.4 09/25/16 1421: Urine Color STRAW, Urine Clarity CLEAR, Urine pH 6.5, Ur Specific [place] <= 1.005, Urine Protein NEG, Urine Ketones NEG, Urine Nitrite NEG, Urine Bilirubin NEG, Urine Urobilinogen 0.2, Ur Leukocyte Esterase NEG, Ur Microscopic EXAM NOT REQUIRED, Urine Hemoglobin NEG, Urine Glucose NEG Patient has reproducible vertigo with positional changes of the head. No nystagmus on exam. No focal deficits. Patient does have risk factors, will be admitted for syncope and rule out ACS. Serial troponins and EKG. Discussed with Dr. Deleon, he will admit patient under his service. Family was updated , all questions answered. Patient feeling slightly improved after morphine and meclizine, we will continue to monitor. Patient would benefit from cardiology consultation, may benefit from IV hydration. d/w dr granados and he agrees with plan. (ANNABELLE COLBERT,MODESTO) Diagnostic Imaging: Viewed by Me: Radiology Read, CT Scan. Discussed w/RAD: Radiology Read, CT Scan. Radiology Impression: ATIENT: GIOVANNY OSCAR PRESENT AGE: 55 PATIENT ACCOUNT NO: [id number] : 59 LOCATION: [facility] ORDERING PHYSICIAN: MODESTO COLBERT SERVICE DATE: 09/25/16 EXAM TYPE: CAT - CT HEAD WO IV CONTRAST EXAMINATION: CT HEAD WITHOUT CONTRAST CLINICAL INFORMATION: Fall. Head trauma. COMPARISON: None TECHNIQUE: Contiguous axial imaging was performed from the skull base to vertex without intravenous administration of contrast. DLP: 617 mGy-cm FINDINGS: There is no evidence of acute intracranial hemorrhage or territorial infarction. No abnormal mass effect or midline shift is seen. Crespo to white matter differentiation is well preserved. No extra-axial fluid collections are identified. The ventricles are normal in size. There is no abnormal attenuation within the brain parenchyma. The osseous structures and soft tissues are normal. The mastoid air cells and visualized portions of the paranasal sinuses are well aerated. IMPRESSION: No acute intracranial pathology. DICTATED BY: CHANTELL CASTANEDA MD DATE/TIME DICTATED: 09/25/161525 TRAFFIC COORDINATOR:[email or web address] DATE/TIME TRANSCRIBED:09/25/161525 CONFIDENTIAL, DO NOT COPY WITHOUT APPROPRIATE AUTHORIZATION. <Electronically signed in Other Vendor System> SIGNED BY: CHANTELL CASTANEDA MD 09/25/16 1548 CXR Impression: PATIENT: GIOVANNY OSCAR PRESENT AGE: 55 PATIENT ACCOUNT NO: [id number] : 58 LOCATION: [facility] ORDERING PHYSICIAN: MODESTO COLBERT SERVICE DATE: 09/25/16-1508 EXAM TYPE: RAD - XRY-CHEST XRAY, PA AND LATERAL EXAMINATION: XR CHEST CLINICAL INFORMATION: Dizziness. COMPARISON: Chest radiograph 08/14/2016. TECHNIQUE: 2 views of the chest were obtained. FINDINGS: Lungs are clear and well expanded. There is no focal consolidative disease or effusion. No pneumothorax. The cardiac silhouette is at upper limits of normal size and unchanged from prior imaging. Upper mediastinal contours are normal. No acute osseous finding. IMPRESSION: The cardiac silhouette is at upper limits of normal size. Otherwise unremarkable chest radiograph with no evidence of consolidative disease or effusion. DICTATED BY: RA BOYER MD DATE/TIME DICTATED:09/25/161535 TRAFFIC COORDINATOR:[email or web address] DATE/TIME TRANSCRIBED:09/25/161535 CONFIDENTIAL, DO NOT COPY WITHOUT APPROPRIATE AUTHORIZATION. <Electronically signed in Other Vendor System> SIGNED BY: RA BOYER MD 09/25/16 1540 Initial ED EKG: NSR 71 BPM, NONSPECIFIC T ABNORMALITIES, INFERIOR LEADS (MODESTO WANG) Departure Departure Time of Disposition: 1711 Disposition: STILL A PATIENT Condition: Stable Clinical Impression Primary Impression: Syncope Qualifiers: Syncope type: unspecified Qualified Code: R55 - Syncope and collapse Secondary Impressions: Chest pain Qualifiers: Chest pain type: unspecified Qualified Code: R07.9 - Chest pain, unspecified Referrals: ALO VALENTINO MD (PCP/Family) Departure Forms: Customer Survey General Discharge Information Observation Note Spoke With: CHANTEL DELEON MD Physician Advisor Notified: MIESHA GUZMAN,RAKESH Todd () Place Patient In: Non-ED OBS Care Area Rationale for Observation: My rational for observation is as follows . Patient requiring serial EKGs, serial troponin, IV hydration, IV antiemetics, cardiology consultation. Patient has several risk factors for ACS. Discharged at this time would be medically harmful. Consider carotid Dopplers, neurology consultation if dizziness persists. Telemetry monitoring for cardiac arrhythmia which can cause dizziness or syncopal symptoms. (MODESTO WANG) PA/SACK SEWER MACHINE Co-Sign Statement Statement: ED Attending supervision documentation- [X] I saw and evaluated the patient. I have also reviewed all the pertinent lab results and diagnostic results. I agree with the findings and the plan of care as documented in the PA's/SACK SEWER MACHINE's documentation. [X] I have reviewed the ED Record and agree with the PA's/SACK SEWER MACHINE's documentation. [] Additions or exceptions (if any) to the PAs/SACK SEWER MACHINE's note and plan are summarized below: [] (MATT GUZMAN,PATIENCE Todd) Critical Care Note Critical Care Note Critical Care Time: non-applicable (MODESTO WANG)
--- NOTE | 2016-09-25 14:46 | NUR ---
PA STUDENT TO MARILIN.
--- NOTE | 2016-09-25 15:21 | NUR ---
PT TO CT SCAN. LABELS PRINTED TO DRAW BLOOD. WILL SURVEY MANAGER TO CEMENT RUBBER UPON ARRIVAL BACK TO ER.
--- NOTE | 2016-09-25 15:28 | NUR ---
PT BACK FROM CT, HOOKED UP TO HOSPICE RN, BP CUFF AND 02 MONITOR. NATTY OSORIO AT BEDSIDE FOR BLOOD DRAW AT THIS TIME. NAE.
[2016-09-25] MEDS ORDERED: GABAPENTIN300 M2 PO (15:33)
[2016-09-25] MEDS ORDERED: VIBERZI75 MG PO (15:35)
[2016-09-25] MEDS ORDERED: TRAVATAN Z5 ML OU (15:35)
[2016-09-25] MEDS ORDERED: CRESTOR10 M1 PO (15:36)
[2016-09-25] MEDS ORDERED: FLECTOR1 EACH TOP (15:36)
[2016-09-25] MEDS ORDERED: CHOLESTYRAMI239.4 GM PO (15:37)
--- NOTE | 2016-09-25 15:37 | NUR ---
LABS DRAWN BY [facility] AND SENT TO LAB. MED REC BEING COMPLETED AT THIS TIME. PT REQUESTING TO STAY IN HER CLOTHING AT THIS TIME.
--- NOTE | 2016-09-25 15:38 | NUR ---
LABS COLLECTED AND SENT BY THIS [facility]. BLUE, SST, LAV, REESE.
--- NOTE | 2016-09-25 15:40 | RADIOLOGY REPORT ---
EXAMINATION: XR CHEST CLINICAL INFORMATION: Dizziness. COMPARISON: Chest radiograph 08/14/2016. TECHNIQUE: 2 views of the chest were obtained. FINDINGS: Lungs are clear and well expanded. There is no focal consolidative disease or effusion. No pneumothorax. The cardiac silhouette is at upper limits of normal size and unchanged from prior imaging. Upper mediastinal contours are normal. No acute osseous finding. IMPRESSION: The cardiac silhouette is at upper limits of normal size. Otherwise unremarkable chest radiograph with no evidence of consolidative disease or effusion.
--- NOTE | 2016-09-25 15:48 | CT SCAN REPORT ---
EXAMINATION: CT HEAD WITHOUT CONTRAST CLINICAL INFORMATION: Fall. Head trauma. COMPARISON: None TECHNIQUE: Contiguous axial imaging was performed from the skull base to vertex without intravenous administration of contrast. DLP: 617 mGy-cm FINDINGS: There is no evidence of acute intracranial hemorrhage or territorial infarction. No abnormal mass effect or midline shift is seen. Crespo to white matter differentiation is well preserved. No extra-axial fluid collections are identified. The ventricles are normal in size. There is no abnormal attenuation within the brain parenchyma. The osseous structures and soft tissues are normal. The mastoid air cells and visualized portions of the paranasal sinuses are well aerated. IMPRESSION: No acute intracranial pathology.
[2016-09-25 15:50] LABS: ABSOLUTE BASOPHIL COUNT 0 /CUMM (0.0-0.2); ABSOLUTE EOSINOPHIL COUNT 0.1 /CUMM (0.0-0.7); ABSOLUTE GRANULOCYTE CT 5.6 /CUMM (1.4-6.5); ABSOLUTE LYMPH COUNT 3.6 /CUMM (1.2-3.4); ABSOLUTE MONOCYTE COUNT 0.7 /CUMM (0.10-0.60); BASOPHIL % 0.3 % (0.0-2.0); EOSINOPHIL % 0.5 % (0-5); HEMATOCRIT 39.8 % (37-47); MEAN CORPUSCULAR HGB 29.9 PG (27.0-31.0); MEAN CORPUSCULAR HGB CONC 33.4 G/DL (33.0-37.0); MEAN CORPUSCULAR VOLUME 89.3 FL (81.0-99.0); MEAN PLATELET VOLUME 8.3 FL (7.4-10.4); PLATELET COUNT 299 /CUMM (130-400); RBC DISTRIBUTION WIDTH 14.1 % (11.5-14.5); RED BLOOD CELL CT 4.46 /CUMM (4.20-5.40)
[2016-09-25 15:55] LABS: PT 10.7 SEC (9.4-12.5)
--- NOTE | 2016-09-25 16:51 | NUR ---
IV STARTED, IVF HUNG AND MEDICATIONS ADMINISTERED PER MAR. VSS AND UPDATED. PT REPORTS PAIN 4/10 IN HEAD. WCTM.
--- NOTE | 2016-09-25 17:47 | NUR ---
PT RESTING IN BED IN CLOTHING AT THIS TIME PER REQUEST. REMAINS ON DRILLING FLUIDS SPECIALIST, BP CUFF AND 02 SAT. DENIES PAIN OR DISCOMFORT AT THIS TIME.
--- NOTE | 2016-09-25 18:42 | History & Physical ---
See Addendum MARIANA VARELA 09/25/16 1842: General Information and HPI History of Present Illness: Ms. Ibarra is a 55 yo F with a PMH of DM (2 years ago), HTN, HLD, Hypothyroidism, Asthma, Gastritis, IBS, Colitis, Neuropathy, GEOFF presented to the ED with intermittent dull epigastric pain, nausea, vomiting 4X-whitish color and dizziness with sitting and standing but worst with positional changes associated with pain and ringing in both ears. She felt as though the room was spinning around her and felt pressure in her eyes followed by light sensitivity. She hit her head on the wall after one episode of dizziness but denies LOC afterwards she then came to the ED with her for further evaluation. She currently has a headache and blurry vision which is also present intermittently. She denies any leg weakness, fever, chills, chest pain, blood in stools or urine. Patient stated she had only eaten cereal for the day and that her dizziness could of been due to hunger but wasn't sure. She did not check her glucose today but recalls her last glucose reading being 137. She described previous episodes of epigastric pain, nausea, vomiting and dizziness in the past which spontaneously resolved. She never did any follow up workup. She walks with a cane that was ordered by her PCP. She states she has been complaint with all of her medication and follows up with her franchise business consultant, blindstitch lapel padder, sales support specialist (colonoscopy 04/2016 negative for colon cancer) and recently had her glasses changed 2 mos ago. Her mother has a history of NH, CABG, CVA and her uncle DM and HTN. ED course: VS stable, CT neg for acute intracranial pathology, CXR negative. ECG showed nonspecific T wave changes. Trop-neg Allergies/Medications Allergies: Coded Allergies: Penicillins (RASH AND ITCHING 10/17/15) shellfish derived (RASH ITCHING 10/17/15) Past History Travel History Traveled to [place] past 21 day No Medical History Neurological: NONE EENT: NONE Cardiovascular: hyperlipidemia Respiratory: asthma Gastrointestinal: NONE Hepatic: NONE Renal: NONE Musculoskeletal: NONE Psychiatric: NONE Endocrine: diabetes, hypothyroidism Blood Disorders: NONE Cancer(s): NONE Surgical History Surgical History: non-contributory Review of Systems Review of Systems Constitutional: Reports: see HPI. Exam & Diagnostic Data Physical Exam General Appearance Alert, Oriented X3, Cooperative, No Acute Distress HEENT Atraumatic, PERRLA Neck Supple, No JVD, No thryomegaly Cardiovascular Regular Rate, Normal S1, Normal S2, No Murmurs Lungs Clear to Auscultation, Normal Air Movement Abdomen Pain with gentle palpation in epigastric area Neurological Normal Speech, Strength at 5/5 X4 Ext, Normal Tone, Sensation Intact Extremities Trace bilateral lower ext edema Last 24 Hrs of Labs/Jae: Laboratory Tests 09/26/16 0650: Sodium Pending, Potassium Pending, Chloride Pending, Carbon Dioxide Pending, Anion Gap Pending, BUN Pending, Creatinine Pending, BUN/Creatinine Ratio Pending , Troponin I Pending, CBC w Diff Pending, WBC Pending, RBC Pending, Hgb Pending, Hct Pending, MCV Pending, MCH Pending, RDW Pending, Plt Count Pending, MPV Pending, PUBS MCHC Pending 09/25/16 2245: Troponin I < 0.01 09/25/16 1533: Anion Gap 13, Estimated GFR > 60, BUN/Creatinine Ratio 18.6, Glucose 124 H, Calcium 10.1, Total Bilirubin 0.4, AST 21, ALT 33, Alkaline Phosphatase 69, Troponin I < 0.01, Total Protein 7.1, Albumin 4.2, Globulin 2.9, Albumin/ Globulin Ratio 1.4, Lipase 52, PT 10.7, INR 1.02, CBC w Diff NO MAN DIFF REQ, RBC 4.46, MCV 89.3, MCH 29.9, RDW 14.1, MPV 8.3, Gran % 56.0, Lymphocytes % 36.3 , Monocytes % 6.9, Eosinophils % 0.5, Basophils % 0.3, Absolute Granulocytes 5.6 , Absolute Lymphocytes 3.6 H, Absolute Monocytes 0.7 H, Absolute Eosinophils 0.1, Absolute Basophils 0, PUBS MCHC 33.4 09/25/16 1421: Urine Color STRAW, Urine Clarity CLEAR, Urine pH 6.5, Ur Specific [place] <= 1.005, Urine Protein NEG, Urine Ketones NEG, Urine Nitrite NEG, Urine Bilirubin NEG, Urine Urobilinogen 0.2, Ur Leukocyte Esterase NEG, Ur Microscopic EXAM NOT REQUIRED, Urine Hemoglobin NEG, Urine Glucose NEG Assessment/Plan Assessment: A: Ms. Ibarra is a 55 yo F with a PMH of DM (2 years ago), HTN, HLD, Hypothyroidism, Asthma, Gastritis, IBS, Colitis, Neuropathy, GEOFF presented to the ED with intermittent dull epigastric pain, nausea, vomiting 4X-whitish color and dizziness with sitting and standing but worst with positional changes associated with pain and ringing in both ears. P: 1. Vertigo r/o BPPV * Admit to Telemetry to r/o arrhythmias * Head CT neg * Refer to Neuro outpatient 2. Epigastric pain most likely gastritis flare * Admit to Telemetry * Serial TROP/ECG to r/o ACS * Omeprazole BID 3. Nausea/Vomiting * Zofran 4. Type 2 DM r/o hypoglycemic episode * Hold Metformin, start insulin SS * Check fingersticks TIDAC and HS 5. HTN/HLD * Continue home meds 6. Hypothyroidism * Continue home meds 7. Neuropathy * Continue home meds DVT prophylaxis-SC Heparin As Ranked By This Provider Problem List: 1. Epigastric pain Core Measures/Miscellaneous Acute Coronary Syndrome ACS Diagnosis: No Cerebrovascular Accident CVA/TIA Diagnosis: No Congestive Heart Failure CHF Diagnosis: No VTE (View Protocol) VTE Risk Factors: Age > 40, Obesity [facility] prophylaxis d/t: No contraindications No VTE Pharm Prophylaxis d/t: No contraindications VTE Diagnosis: No VTE Type: NONE VTE Confirmed by (Test): NONE Sepsis (View Protocol) Severe Sepsis Present: No Septic Shock Septic Shock Present: No Miscellaneous Documentation Attending Case Discussed With: CHANTEL ERNANDEZ MD Primary Care Physician: ALO VALENTINO MD Patient sees these Specialists Food And Nutrition Teacher Rolled Materials Worker Level of Patient Care: Telemetry ROGER BERMAN MD 09/25/161939: General Information and HPI Allergies/Medications Home Med list Alendronate Sodium 70 MG TABLET 1 TAB PO QW BONE (Reported) in the morning, at least 30 minutes before the first food, beverage, or medication of the day Atorvastatin Calcium 20 MG TABLET 1 TAB PO QPM CHOLESTEROL (Reported) Calcium Carbonate/Vitamin D3 (Calcium + Vitamin D Tablet) 1 EACH TABLET 1 TAB PO BID SUPPLEMENT (Reported) Eluxadoline (Viberzi) 75 MG TABLET 1 TAB PO BID GI (Reported) Gabapentin 300 MG CAPSULE 1 CAP PO TID NEUROPATHY (Reported) Hydrochlorothiazide 12.5 MG TABLET 1 TAB PO DAILY WATER PILL (Reported) Levothyroxine Sodium 150 MCG TABLET 1 TAB PO DAILY AC THYROID (Reported) Lisinopril 10 MG TABLET 1 TAB PO DAILY BP (Reported) Metformin HCl 1,000 MG TABLET 1 TAB PO BID DIABETES (Reported) Montelukast Sodium 10 MG TABLET 1 TAB PO DAILY ALLERGIES/ASTHMA (Reported) Travoprost (Travatan Z) 0.004 % DROPS 1 GTT OU QPM BOTH EYES (Reported) Review of Systems Review of Systems Constitutional: Reports: no symptoms. Exam & Diagnostic Data Last 24 Hrs of Vital Signs/I&O Vital Signs Date Time Temp Pulse Resp B/P B/P Pulse O2 O2 Flow FiO2 Mean Ox Delivery Rate 09/25 2044 96.9 69 20 118/62 95 Room Air 09/25 1900 96.5 66 20 122/69 97 Room Air 09/25 1653 71 15 112/69 95 Room Air 09/25 1411 97.3 81 18 122/73 97 Room Air Intake & Output 09/25 1600 09/25 0800 09/25 0000 Intake Total Output Total Balance Patient 228 lb Weight Weight Reported by Patient Measurement Method Resident Review Statement Resident Statement: examined this patient, discussed with promotions intern, agreed with promotions intern, discussed with family Other Findings: 55 Yo F with PMH of Type 2 diabetes, hypothyroidism, gastritis/colitis, diabetic neuropathy, hyperlipidemia and IBS who presents with nausea, vomiting, dizziness with movt, vertigo and double vision. She also c/o of epigastric pain that comes and goes. She has a hx of unsteady gait and uses a cane for ambulation but says she has never been worked up for a posisble cause. She also reports having similar episodes of dizziness in the past but they did not persist and resolved on their own. She notes some pain in her eyes with bright lights, occassional pain and ringing in her ears and generalized headaches. She denies any diarrhea, chest pain, fever or chills. Her medication hx has a lot of NSAIDSe.g celcoxib, ibuprofen, meloxicam etc but she reports only taking ibuprofen as needed. She had a colonoscopy in apr that came back normal. Assessment 1. Dizziness/vertigo r/o BPPV 2. Epigastric pain-Possible gastritis r/o atypical chest pain with background of DM/HLD 3. Type 2 DM 4. Hyperlipidemia 5. Hypothyroidism Plan Admit to tele Trend trops and EKG to r/o ACS PO omeprazole BID Check stool guaic Hold metformin Start Insulin SS Check fingersticks TIDAC and HS Continue her home medications Pt may need a neurology evaluation on discharge for unsteady gait Follow attending reconmendations Pain pathway CHANTEL Lala MD 09/26/16 1126: Past Family/Social History Family History Relations & Conditions if any MOTHER Coronary artery disease Psychosocial History Smoking Status: Never Smoked Attending MD Review Statement Attending Statement Attending MD Statement: examined this patient, discuss w/resident/PA/FUEL OIL CLERK, agreed w/resident/PA/FUEL OIL CLERK, discussed with family, reviewed EMR data (avail), discussed with nursing, reviewed images, amended to note Attending Assessment/Plan: EKG tracing is independently reviewed, and reveals normal sinus rhythm at 62 with minor nonspecific T-wave abnormality Assessment: 1. Diabetes mellitus 2. Hypertension 3. IBS 4. Acute nausea, vomiting, and atypical chest discomfort, resolved. No definite acute ischemic changes. Ruled out for myocardial infarction. Plan: * Continue current medications * discharge to home * Follow up with her usual franchise business consultant and PCP
--- NOTE | 2016-09-25 20:36 | NUR ---
PATIENT ASSIGNED TO 189-1
--- NOTE | 2016-09-25 20:49 | NUR ---
ATTEMPTED TO CALL REPORT AND WAS ASKED FOR 10 MINUTES AND RN WILL CALL BACK.
--- NOTE | 2016-09-25 21:07 | NUR ---
REPORT GIVEN TO MYRIAM LITTLE AT THIS TIME AND ANSWERED ALL QUESTIONS. TRANSPORT BOOKED.
[2016-09-25 23:02] VITALS: BP 116/78
[2016-09-26 08:01] VITALS: BP 102/58
[2016-09-26 08:09] LABS: ABSOLUTE BASOPHIL COUNT 0 /CUMM (0.0-0.2); ABSOLUTE EOSINOPHIL COUNT 0.1 /CUMM (0.0-0.7); ABSOLUTE GRANULOCYTE CT 4.6 /CUMM (1.4-6.5); ABSOLUTE LYMPH COUNT 3.6 /CUMM (1.2-3.4); ABSOLUTE MONOCYTE COUNT 0.5 /CUMM (0.10-0.60); BASOPHIL % 0.3 % (0.0-2.0); EOSINOPHIL % 0.9 % (0-5); GRANULOCYTE % 52.1 % (42.2-75.2); HEMATOCRIT 38.3 % (37-47); MEAN CORPUSCULAR HGB 30.2 PG (27.0-31.0); MEAN CORPUSCULAR HGB CONC 33.7 G/DL (33.0-37.0); MEAN CORPUSCULAR VOLUME 89.7 FL (81.0-99.0); MEAN PLATELET VOLUME 8.5 FL (7.4-10.4); PLATELET COUNT 273 /CUMM (130-400); RBC DISTRIBUTION WIDTH 14.4 % (11.5-14.5); RED BLOOD CELL CT 4.26 /CUMM (4.20-5.40)
--- NOTE | 2016-09-26 08:27 | PN- Student ---
Subjective Subjective: Tele-events: sinus nicole 55-75 Patient speaks lao, talked with family member. Subjective: Patient is in no acute distress. She mentions she is light headed, with pain up to 7/10. She also is a little dizzy. She has a small amount of stomach pain. Objective Objective: Exam General: No apparent distress, AOx3 HEENT: atraumatic, PERRLA, EOMI Neck: Supple, no LAD Heart: RRR, Nl s1s2 Lungs: Clear to auscultation B/L Abdomen: tender to palpation in epigastric region Extremities: no cyanosis, trace edema, pulses 2+ B/L Current Medications Sig/Audelia Start time Last Medication Dose Route Stop Time Status Admin Acetaminophen 650 MG Q6P PRN 09/25 2100 AC PO Acetaminophen/ 1 TAB Q6P PRN 09/25 2100 AC 09/26 Hydrocodone Bitart PO 08 Atorvastatin Calcium 20 MG QPM 09/25 2200 AC 09/25 PO 223 Enoxaparin Sodium 40 MG DAILY 09/25 205 AC 09/25 SC 223 Gabapentin 300 MG TID 09/25 2199 AC 09/25 PO 2231 Insulin Aspart 0 TIDAC 09/26 0800 AC SC Levothyroxine Sodium 0.15 MG DAILY AC 09/26 0700 AC 09/26 PO 0645 Lisinopril 10 MG DAILY 09/26 1000 AC PO Meclizine HCl 0 .STK-MED ONE 09/25 1647 DC PO Meclizine HCl 25 MG ONCE ONE 09/25 1615 DC 09/25 PO 09/25 1616 1652 Morphine Sulfate 0 .STK-MED ONE 09/25 1648 DC .ROUTE Morphine Sulfate 4 MG ONCE ONE 09/25 1615 DC 09/25 IV 09/25 1616 1652 Omeprazole 40 MG BID 09/25 220 AC 09/25 PO 223 Ondansetron HCl 4 MG Q6P PRN 09/25 2045 AC IV Ondansetron HCl 0 .STK-MED ONE 09/25 1647 DC .ROUTE Ondansetron HCl 4 MG ONCE ONE 09/25 1615 DC 09/25 IV 09/25 1616 1652 Oxycodone/ 1 TAB Q6P PRN 09/25 2230 AC Acetaminophen PO Oxycodone/ 2 TAB Q6P PRN 09/25 2100 DC 09/25 Acetaminophen PO 09/25 2218 2205 Sodium Chloride 1,000 ML BOLUS ONE 09/25 1615 DC 09/25 IV 09/25 1814 1652 Vital Signs Date Time Temp Pulse Resp B/P B/P Pulse O2 O2 Flow FiO2 Mean Ox Delivery Rate 09/26 0801 98.1 61 18 102/58 97 CPAP 09/26 0121 69 98 09/25 2302 98.0 66 18 116/78 96 Room Air 09/25 2250 80 98 09/25 2200 CPAP 09/25 2044 96.9 69 20 118/62 95 Room Air 09/25 1900 96.5 66 20 122/69 97 Room Air 09/25 1653 71 15 112/69 95 Room Air 09/25 1411 97.3 81 18 122/73 97 Room Air Intake & Output 09/26 1600 09/26 0800 09/26 0000 Intake Total 150 1000 Output Total Balance 150 1000 Intake, IV 0 1000 Intake, Oral 150 Number 0 Bowel Movements Patient 228 lb Weight Results Results: Laboratory Tests 09/26/16 0650: Sodium Pending, Potassium Pending, Chloride Pending, Carbon Dioxide Pending, Anion Gap Pending, BUN Pending, Creatinine Pending, BUN/Creatinine Ratio Pending , Troponin I Pending, CBC w Diff Pending, WBC Pending, RBC Pending, Hgb Pending, Hct Pending, MCV Pending, MCH Pending, RDW Pending, Plt Count Pending, MPV Pending, PUBS MCHC Pending 09/25/16 2245: Troponin I < 0.01 09/25/16 1533: Anion Gap 13, Estimated GFR > 60, BUN/Creatinine Ratio 18.6, Glucose 124 H, Calcium 10.1, Total Bilirubin 0.4, AST 21, ALT 33, Alkaline Phosphatase 69, Troponin I < 0.01, Total Protein 7.1, Albumin 4.2, Globulin 2.9, Albumin/ Globulin Ratio 1.4, Lipase 52, PT 10.7, INR 1.02, CBC w Diff NO MAN DIFF REQ, RBC 4.46, MCV 89.3, MCH 29.9, RDW 14.1, MPV 8.3, Gran % 56.0, Lymphocytes % 36.3 , Monocytes % 6.9, Eosinophils % 0.5, Basophils % 0.3, Absolute Granulocytes 5.6 , Absolute Lymphocytes 3.6 H, Absolute Monocytes 0.7 H, Absolute Eosinophils 0.1, Absolute Basophils 0, PUBS MCHC 33.4 09/25/16 1421: Urine Color STRAW, Urine Clarity CLEAR, Urine pH 6.5, Ur Specific [place] <= 1.005, Urine Protein NEG, Urine Ketones NEG, Urine Nitrite NEG, Urine Bilirubin NEG, Urine Urobilinogen 0.2, Ur Leukocyte Esterase NEG, Ur Microscopic EXAM NOT REQUIRED, Urine Hemoglobin NEG, Urine Glucose NEG Assessment/Plan Assessment: jody Ibarra is a 55 yo F with a PMH of DM (2 years ago), HTN, HLD, Hypothyroidism, Asthma, Gastritis, IBS, Colitis, Neuropathy, GEOFF presented to the ED with intermittent dull epigastric pain, nausea, vomiting 4X-whitish color and dizziness with sitting and standing but worst with positional changes associated with pain and ringing in both ears. Plan: Vertigo r/o BPPV -Use jeovanny-hallpike maneuver to assess BPPV, do dex if + Epigastric pain, likely d/t gastritis flair-up -D/C any NSAIDs -start on PPIs N/V -Zofran T2DM r/o hypoglycemia -hold metform start insulin SS -check finger sticks HTN -cont home meds HL -cont home meds Hypothyroid -cont home meds Neuropathy -cont home meds
--- NOTE | 2016-09-26 08:43 | PN-Observation ---
Observation Note Observation Note _ I have personally examined GIOVANNY OSCAR. her disposition is uncertain at this time. Before a determination can be made, she requires continued observation for nausea, vomiting, dizziness, epigastric pain. Assessment/Plan Assessment: A: Ms. Oscar is a 55 yo F with a PMH of DM (2 years ago), HTN, HLD, Hypothyroidism, Asthma, Gastritis, IBS, Colitis, Neuropathy, GEOFF presented to the ED with intermittent dull epigastric pain, nausea, vomiting 4X-whitish color and dizziness with sitting and standing but worst with positional changes associated with pain and ringing in both ears. P: 1. Vertigo r/o BPPV * Refer to Neuro outpatient 2. Epigastric pain most likely gastritis flare * Admit to OBS * Serial TROP/ECG to r/o ACS negative * Omeprazole BID 3. Nausea/Vomiting * Zofran 4. Type 2 DM r/o hypoglycemic episode * Hold Metformin, start insulin SS * Check fingersticks TIDAC and HS 5. HTN/HLD * Continue home meds 6. Hypothyroidism * Continue home meds 7. Neuropathy * Continue home meds DVT prophylaxis-SC Heparin Problem List: 1. Epigastric pain 2. Headache Subjective Follow-up For: [place] Vertigo Epigastric pain Subjective: Patient reports is lightheadedness and epigastric pain up to 7/10. No acute events overnight Review of Systems Constitutional: Reports: see HPI. Objective Last 24 Hrs of Vital Signs/I&O Vital Signs Date Time Temp Pulse Resp B/P B/P Pulse O2 O2 Flow FiO2 Mean Ox Delivery Rate 09/26 0801 98.1 61 18 102/58 97 CPAP 09/26 0121 69 98 09/25 2302 98.0 66 18 116/78 96 Room Air 09/25 2250 80 98 09/25 2200 CPAP 09/25 2044 96.9 69 20 118/62 95 Room Air 09/25 1900 96.5 66 20 122/69 97 Room Air 09/25 1653 71 15 112/69 95 Room Air 09/25 1411 97.3 81 18 122/73 97 Room Air Intake & Output 09/26 1600 / 0800 07 0000 Intake Total 150 1000 Output Total Balance 150 1000 Intake, IV 0 1000 Intake, Oral 150 Number 0 Bowel Movements Patient 228 lb Weight Physical Exam General Appearance: Alert, Oriented X3, Cooperative HEENT: Atraumatic, PERRLA Neck: Supple, No JVD, No thryomegaly Cardiovascular: Regular Rate, Normal S1, Normal S2 Lungs: Clear to Auscultation, Normal Air Movement Abdomen: Normal Bowel Sounds, Soft, No Tenderness Extremities: No Cyanosis, No Edema Current Medications: Current Medications Sig/Audelia Start time Last Medication Dose Route Stop Time Status Admin Acetaminophen 650 MG Q6P PRN 09/25 2099 AC PO Acetaminophen/ 1 TAB Q6P PRN 09/25 2100 AC 09/26 Hydrocodone Bitart PO 08 Atorvastatin Calcium 20 MG QPM 09/25 2199 AC 09/25 PO 223 Enoxaparin Sodium 40 MG DAILY 09/25 205 AC 09/25 SC 223 Gabapentin 300 MG TID 09/25 2199 AC 09/25 PO 223 Insulin Aspart 0 TIDAC 09/26 0800 AC SC Levothyroxine Sodium 0.15 MG DAILY AC 09/26 0700 AC 09/26 PO 0645 Lisinopril 10 MG DAILY 09/26 1000 AC PO Meclizine HCl 0 .STK-MED ONE 09/25 164 DC PO Meclizine HCl 25 MG ONCE ONE 09/25 1615 DC 09/25 PO 09/25 1616 1652 Morphine Sulfate 0 .STK-MED ONE 09/25 1648 DC .ROUTE Morphine Sulfate 4 MG ONCE ONE 09/25 1615 DC 09/25 IV 09/25 1616 1652 Omeprazole 40 MG BID 09/25 2199 AC 09/25 PO 2231 Ondansetron HCl 4 MG Q6P PRN 09/25 2045 AC IV Ondansetron HCl 0 .STK-MED ONE 09/25 1647 DC .ROUTE Ondansetron HCl 4 MG ONCE ONE 09/25 1615 DC 09/25 IV 09/25 1616 1652 Oxycodone/ 1 TAB Q6P PRN 09/25 2229 AC Acetaminophen PO Oxycodone/ 2 TAB Q6P PRN 09/25 2100 DC 09/25 Acetaminophen PO 09/25 2218 2205 Sodium Chloride 1,000 ML BOLUS ONE 09/25 1615 DC 09/25 IV 09/25 1814 1652 Last 24 Hrs of Labs/Mics: Laboratory Tests 09/26/16 0650: Anion Gap 11, Estimated GFR > 60, BUN/Creatinine Ratio 17.1, Troponin I < 0.01, CBC w Diff Pending, WBC Pending, RBC Pending, Hgb Pending, Hct Pending, MCV Pending, MCH Pending, RDW Pending, Plt Count Pending, MPV Pending, Gran % Pending, Lymphocytes % Pending, Monocytes % Pending, Eosinophils % Pending, Basophils % Pending, Absolute Granulocytes Pending, Absolute Lymphocytes Pending , Absolute Monocytes Pending, Absolute Eosinophils Pending, Absolute Basophils Pending, PUBS MCHC Pending 09/25/16 2245: Troponin I < 0.01 09/25/16 1533: Anion Gap 13, Estimated GFR > 60, BUN/Creatinine Ratio 18.6, Glucose 124 H, Calcium 10.1, Total Bilirubin 0.4, AST 21, ALT 33, Alkaline Phosphatase 69, Troponin I < 0.01, Total Protein 7.1, Albumin 4.2, Globulin 2.9, Albumin/ Globulin Ratio 1.4, Lipase 52, PT 10.7, INR 1.02, CBC w Diff NO MAN DIFF REQ, RBC 4.46, MCV 89.3, MCH 29.9, RDW 14.1, MPV 8.3, Gran % 56.0, Lymphocytes % 36.3 , Monocytes % 6.9, Eosinophils % 0.5, Basophils % 0.3, Absolute Granulocytes 5.6 , Absolute Lymphocytes 3.6 H, Absolute Monocytes 0.7 H, Absolute Eosinophils 0.1, Absolute Basophils 0, PUBS MCHC 33.4 09/25/16 1421: Urine Color STRAW, Urine Clarity CLEAR, Urine pH 6.5, Ur Specific [place] <= 1.005, Urine Protein NEG, Urine Ketones NEG, Urine Nitrite NEG, Urine Bilirubin NEG, Urine Urobilinogen 0.2, Ur Leukocyte Esterase NEG, Ur Microscopic EXAM NOT REQUIRED, Urine Hemoglobin NEG, Urine Glucose NEG
[2016-09-26 09:51] VITALS: BP 120/62
[2016-09-26 10:13] LABS: WHITE BLOOD CELL COUNT 8.8 /CUMM (4.8-10.8)
--- NOTE | 2016-09-26 11:44 | Patient Discharge Instructions ---
Discharge Instructions General Discharge Information You were seen/treated for: Nausea Vomiting Vertigo Epigastric pain You had these procedures: None Special Instructions: Follow up with your PCP and doctor of veterinary medicine within 1 week after discharge Follow up with neurologist outpatient within 1 week after discharge Diet Continue normal diet: Yes Activity Full Activity/No Limits: Yes Acute Coronary Syndrome Inclusion Criteria At DC or during hospital stay patient has or had the following: ACS DIAGNOSIS No Discharge Core Measures Meds if any: Prescribed or Continued at Discharge Meds if any: NOT Prescribed or Continued at Discharge Congestive Heart Failure Inclusion Criteria At DC or during hospital stay patient has or had the following: CHF DIAGNOSIS No Discharge Core Measures Meds if any: Prescribed or Continued at Discharge Meds if any: NOT Prescribed or Continued at Discharge Cerebrovascular accident Inclusion Criteria At DC or during hospital stay patient has or had the following: CVA/TIA Diagnosis No Discharge Core Measures Meds if any: Prescribed or Continued at Discharge Meds if any: NOT Prescribed or Continued at Discharge Venous thromboembolism Inclusion Criteria VTE Diagnosis No VTE Type NONE VTE Confirmed by (Test) NONE Discharge Core Measures - Per Current guidelines, there needs to be overlap - treatment for the first 5 days of Warfarin therapy. - If discharged on Warfarin prior to 5 days of - overlap therapy, the patient will need to be - assessed for post discharge needs including - *Post discharge parental anticoagulation - *Warfarin and/or parental anticoagulation education - *Follow up date to check INR post discharge At least 5 days overlap therapy as Inpatient No Meds if any: Prescribed or Continued at Discharge Note: Overlap Therapy is Warfarin and Anticoagulant Meds if any: NOT Prescribed or Continued at Discharge
== END 2016-09-26 13:32 ==
LOC: ERH 13:54 → 1NO 16:23 → ERHI 16:23 → ENRESERV 20:27 → ENTRNSPT 21:24 → EDTRNSPTSTS 21:28 → 1NO 21:52 → CMPTRNSPT 22:03 → 1NO 09-26 07:29 → ENPENDDIS 09-26 12:32 → 1NO 09-26 13:32
PROVIDERS: Physician Assistant; Student in an Organized Health Care Education/Training Program; ADMIT Internal Medicine Cardiovascular Disease
DX: R42 Dizziness and giddiness (principal); R10.13 Epigastric pain; E11.40 Type 2 diabetes mellitus with diabetic neuropathy, unspecified; Z79.84 Long term (current) use of oral hypoglycemic drugs; I10 Essential (primary) hypertension; E78.5 Hyperlipidemia, unspecified; E03.9 Hypothyroidism, unspecified; J45.909 Unspecified asthma, uncomplicated; K29.70 Gastritis, unspecified, without bleeding; K58.9 Irritable bowel syndrome, unspecified; K52.9 Noninfective gastroenteritis and colitis, unspecified; G47.33 Obstructive sleep apnea (adult) (pediatric); R11.2 Nausea with vomiting, unspecified
CPT/HCPCS: 1288; 6020; 36415; 81003; 82436; 93005; 93010; 96360; 96361; 96372; 96374; 96375; G0378; J1650; J2405

== ENCOUNTER 2017-03-21 06:51 | Emergency (ER) | payer OTHER ==
[~2017-03-21] VITALS: Ht 152.4 cm; Wt 100.7 kg
[~2017-03-21 06:51] MED LIST changes: +CHOLESTYRAMI239.4 GM PO; +CRESTOR10 M1 PO; +CYCLOBENZAPRINE5 M2 PO; +FLECTOR1 EACH TOP; +GABAPENTIN300 M2 PO; +TRAVATAN Z5 ML OU; +VIBERZI75 MG PO
--- NOTE | 2017-03-21 07:20 | ED GI/GU/ABDOMINAL COMPLAINT ---
History of Present Illness General Chief Complaint: Abdominal Pain/Flank Pain Stated Complaint: FLANK PAIN Source: patient Exam Limitations: no limitations Vital Signs & Intake/Output Vital Signs & Intake/Output Vital Signs Date Time Temp Pulse Resp B/P B/P Pulse O2 O2 Flow FiO2 Mean Ox Delivery Rate 03/21 0819 98.3 72 20 121/70 99 Room Air 03/21 0659 97.0 73 18 153/81 97 Room Air Allergies Coded Allergies: Penicillins (RASH AND ITCHING 10/17/15) shellfish derived (RASH ITCHING 10/17/15) Reconcile Medications Alendronate Sodium 70 MG TABLET 1 TAB PO QW BONE (Reported) in the morning, at least 30 minutes before the first food, beverage, or medication of the day Atorvastatin Calcium 20 MG TABLET 1 TAB PO QPM CHOLESTEROL (Reported) Calcium Carbonate/Vitamin D3 (Calcium + Vitamin D Tablet) 1 EACH TABLET 1 TAB PO BID SUPPLEMENT (Reported) Cyclobenzaprine HCl 5 MG TABLET 1 TAB PO TIDPRN PRN pain Eluxadoline (Viberzi) 75 MG TABLET 1 TAB PO BID GI (Reported) Gabapentin 300 MG CAPSULE 1 CAP PO TID NEUROPATHY (Reported) Hydrochlorothiazide 12.5 MG TABLET 1 TAB PO DAILY WATER PILL (Reported) Levothyroxine Sodium 150 MCG TABLET 1 TAB PO DAILY AC THYROID (Reported) Lisinopril 10 MG TABLET 1 TAB PO DAILY BP (Reported) Metformin HCl 1,000 MG TABLET 1 TAB PO BID DIABETES (Reported) Montelukast Sodium 10 MG TABLET 1 TAB PO DAILY ALLERGIES/ASTHMA (Reported) Omeprazole 40 MG CAPSULE.DR 1 CAP PO DAILY STOMACHE ACID Ondansetron (Zofran Odt) 4 MG TAB.RAPDIS 1 TAB SL TID nausea Oxycodone HCl/Acetaminophen (Percocet 5-325 MG Tablet) 5 MG-325 MG TABLET 1 TAB PO BID PRN pain Tramadol HCl (Ultram) 50 MG TABLET 1 TAB PO Q6P PRN PAIN Travoprost (Travatan Z) 0.004 % DROPS 1 GTT OU QPM BOTH EYES (Reported) Triage Note: PT IS CROATIAN SPEAKING. TRANSLATING PT TO ED C/O GEORGIE FLANK PAIN THAT GOES TO SIDES FOR 3 DAYS. +URINARY FREQUENCY. WENT TO "[facility] 2 DAYS AGO, HAS BEEN ON ABX FOR 2 DAYS, NOT GETTING BETTER. DID NOT GET RESULTS OD URINALYSIS YET. ALSO C/O BLACK TARRY STOOL LAST NIGHT Triage Nurses Notes Reviewed? yes ? n Is pt currently ? No Onset: Gradual Duration: day(s):, constant, continues in ED Quality/Severity: severe, tightness Location: bilateral flanks, L>R Radiation: no radiation Activities at Onset: none HPI: Patient presents for evaluation of bilateral flank pain that began 3-4 days ago. She has been taking Cipro and Flagyl as prescribed by her physician. Patient's pain is described as a constant bilateral tightness left greater than right with an associated urinary frequency and black stool. Patient has also felt nauseous and experienced chills at night. She denies any other associated fever or cold symptoms. Past History Travel History Traveled to [place] past 21 day No Medical History Any Pertinent Medical History? 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 No Review of Systems Review of Systems Constitutional: Reports: no symptoms. EENTM: Reports: no symptoms. Respiratory: Reports: no symptoms. Cardiovascular: Reports: no symptoms. GI: Reports: no symptoms. Genitourinary: Reports: no symptoms. Musculoskeletal: Reports: see HPI. Skin: Reports: no symptoms. Neurological/Psychological: Reports: no symptoms. Hematologic/Endocrine: Reports: no symptoms. Immunologic/Allergic: Reports: no symptoms. All Other Systems: Reviewed and Negative Physical Exam Physical Exam Gastrointestinal: SEE BELOW Comments: Gen.: Well-nourished, well-developed, no acute respiratory distress. Mildly uncomfortable secondary to flank pain. Head: Normocephalic, atraumatic. Eyes: Normal inspection bilaterally Ears: Normal inspection bilaterally Nose: Normal inspection Throat/mouth : Moist mucosa Neck: Supple, full range of motion, no goiter Heart: Regular rate and rhythm, no murmurs rubs or gallops Lungs: Clear to auscultation bilaterally with normal air entry Chest: Nontender Back: Normal range of motion Abdomen: Soft, left upper quadrant tenderness with brief voluntary guarding but no rebound, nondistended, normal bowel sounds Extremities: Normal range of motion grossly, equal radial pulses, no cyanosis clubbing or edema Neurologic: Cranial nerves grossly intact, speech is clear Skin: warm and dry Psychiatric: Calm, cooperative, no apparent delusions or hallucinations Rectal: No stool in the rectal vault, residue tested heme-positive, nontender exam, no masses Core Measures ACS in differential dx? No Sepsis Present: No Sepsis Focused Exam Completed? No Progress Differential Diagnosis: kidney stone, pancreatitis, DIVERTICULITIS, GASTRITIS, GASTROENTERITIS, PEPTIC ULCER DISEASE, BOWEL OBSTRUCTION, ILEUS Plan of Care: Orders Procedure Date/time Status Hemoccult 03/21 738 Active URINALYSIS 03/21 717 Complete LIPASE 03/21 717 Complete HUMAN BETA HCG SCREEN 03/21 717 Complete COMPREHENSIVE METABOLIC PANEL 03/21 717 Complete CBC WITHOUT DIFFERENTIAL 03/21 717 Complete Laboratory Tests 03/21/17 0745: Urine Color VIKKI, Urine Clarity CLEAR, Urine pH 7.0, Ur Specific [place] 1.025, Urine Protein NEG, Urine Ketones NEG, Urine Nitrite NEG, Urine Bilirubin NEG, Urine Urobilinogen 0.2, Ur Leukocyte Esterase TRACE H, Ur Microscopic SEDIMENT EXAMINED, Urine RBC RARE, Urine WBC 5-10 H, Ur Epithelial Cells MANY H, Urine Bacteria MOD H, Urine Mucus MANY H, Urine Hemoglobin NEG, Urine Glucose NEG 03/21/17 0735: Anion Gap 15, Estimated GFR > 60, BUN/Creatinine Ratio 22.9, Glucose 131 H, Calcium 9.0, Total Bilirubin 0.4, AST 26, ALT 36, Alkaline Phosphatase 65, Total Protein 6.9, Albumin 3.9, Globulin 3.0, Albumin/Globulin Ratio 1.3, Lipase 115, Total Beta HCG NEGATIVE, CBC w Diff NO MAN DIFF REQ, RBC 4.17 L, MCV 90.9, MCH 30.0, RDW 14.4, MPV 8.0, Gran % 60.2, Lymphocytes % 31.3, Monocytes % 6.8, Eosinophils % 1.2, Basophils % 0.5, Absolute Granulocytes 4.5, Absolute Lymphocytes 2.3, Absolute Monocytes 0.5, Absolute Eosinophils 0.1, Absolute Basophils 0, PUBS MCHC 33.0 Diagnostic Imaging: Discussed w/RAD: CT Scan. Radiology Impression: PATIENT: YANET OSCAR PRESENT AGE: 56 PATIENT ACCOUNT NO: [id number] : 58 LOCATION: [facility] ORDERING PHYSICIAN: Anand Riggins MD SERVICE DATE: 03/21/17 EXAM TYPE : CAT - CT ABD & PELVIS W/O IV CONTRAS EXAMINATION: CT ABDOMEN AND PELVIS WITHOUT CONTRAST CLINICAL INFORMATION: Bilateral flank pain. Black stool. Presumptive diagnosis; diverticulitis. COMPARISON: CT abdomen pelvis dated 01/07. TECHNIQUE: Multidetector volumetric imaging was performed from the superior aspect of the liver through the pubic symphysis. Sagittal and coronal reformatted images were obtained on the technologist's workstation. DLP: 1111.32 mGy-cm FINDINGS: LUNG BASES: The lung bases are clear. There is no pleural effusion. The heart is normal in size. No pericardial effusion. LIVER, GALLBLADDER, AND BILIARY TREE: The liver is enlarged measuring up to 23 cm in length. It demonstrates homogeneous, decreased attenuation consistent with fatty infiltration. There is no intrahepatic biliary ductal dilation. The gallbladder is not visualized. Correlate with surgical history. PANCREAS: Unremarkable. SPLEEN: Unremarkable. ADRENAL GLANDS: Unremarkable. KIDNEYS AND URETERS: The kidneys are normal in size. There is a subcentimeter low-attenuation lesion within the right kidney. This lesion is too small for definitive characterization. No hydronephrosis, hydroureter, or calculi seen. No perinephric stranding. BLADDER: Small punctate calcification associated with the dome of the bladder, unchanged when compared with prior examination. The partially distended urinary bladder is otherwise unremarkable. GASTROINTESTINAL TRACT: There is a small hiatal hernia. The small and large bowel are normal in caliber. There is mild sigmoid colon diverticulosis. The appendix is unremarkable. ABDOMINAL WALL: There is a small fat-containing umbilical hernia. LYMPH NODES: No lymphadenopathy. VASCULAR: No aortic aneurysm. PELVIC VISCERA: The uterus is surgically absent. No adnexal mass. OSSEOUS STRUCTURES: There are significant degenerative changes at L5-S1 characterized by intervertebral disc space narrowing, osteophytosis, endplate sclerosis and Schmorl's node formation. IMPRESSION: 1. No acute abnormality is detected within the abdomen or pelvis. 2. Mild hepatomegaly. 3. Hepatic steatosis. DICTATED BY: Demarco Coker MD DATE/ TIME DICTATED:03/21/17825 GEOLOGY PROFESSOR:[id number] DATE/TIME TRANSCRIBED: 03/21/17825 CONFIDENTIAL, DO NOT COPY WITHOUT APPROPRIATE AUTHORIZATION. < Electronically signed in Other Vendor System> SIGNED BY: Demarco Coker MD 03/21/17841 Initial ED EKG: none Comments: 03/21/2017 9:21:39 AM I have updated Yanet on test results. She is still uncomfortable despite ketorolac and morphine. She confirms that she is status post cholecystectomy. The cause of her pain is unclear at this point given the clinical presentation and lack of significant findings on evaluation to this point. I will treat her with additional pain medication and reevaluate. 03/21/2017 9:42:30 AM according to the patient's son, Yanet wishes to go. She doesn't want any additional medication. I explained that I have ordered a GI cocktail and Pepcid for the possibility of a bleeding ulcer. They understand this and state that they will follow up with her GI specialist today. I've advised them that outside of the possibility of an ulcer, the cause for her pain is unclear. I will prescribe omeprazole and provide a few tablets of pain medication. Departure Departure Disposition: LEFT AGAINST MEDICAL ADVICE Condition: Stable Clinical Impression Primary Impression: Nonspecific abdominal pain Secondary Impressions: Heme positive stool, Hepatic steatosis Referrals: Patient Has No Primary Care Dr (PCP/Family) Additional Instructions: Please note that you are leaving AGAINST MEDICAL ADVICE. I feel he require further testing and treatment in the emergency department to better define the underlying cause for your abdominal pain. There is an indication of possible bleeding ulcer or other GI bleeding. This could lead to weakness, shortness of breath, low blood pressure, fainting or . Omeprazole as prescribed. Hettinger diet. Contact your GI specialist today for reevaluation and further testing as indicated. Notify your primary care doctor of this emergency department visit and treatment plan. Return if any concerns or sudden worsening. Please note that there might be incidental findings in your evaluation that are unrelated to the current emergency department visit. Please notify your primary care doctor about this emergency department visit in order to obtain and review all of the testing performed so that these incidental findings can be monitored as needed. If you had an x-ray performed, please understand that some fractures may not be seen on the initial set of x-rays. If your symptoms persist you might need a repeat set of x-rays to check for such a fracture. If you had a laceration evaluated, please understand that foreign bodies such as glass or wood may not be visible to the naked eye or on plain x-rays. If the wound becomes red, swollen, increasingly more painful or if there is any drainage from the wound, please have it reevaluated by a physician for the possibility of a retained foreign body. If you're unable to follow up as outlined in the discharge instructions please return to the emergency department. Thank you for choosing the [facility] Emergency Department for your care. It was a pleasure to serve you today. Anand Riggins M.D. [facility] Departure Forms: Customer Survey General Discharge Information Prescriptions: Current Visit Scripts Omeprazole 1 CAP PO DAILY #20 CAP Tramadol HCl (Ultram) 1 TAB PO Q6P PRN PAIN #4 TAB
[2017-03-21 07:50] LABS: ABSOLUTE BASOPHIL COUNT 0 /CUMM (0.0-0.2); ABSOLUTE EOSINOPHIL COUNT 0.1 /CUMM (0.0-0.7); ABSOLUTE GRANULOCYTE CT 4.5 /CUMM (1.4-6.5); ABSOLUTE LYMPH COUNT 2.3 /CUMM (1.2-3.4); ABSOLUTE MONOCYTE COUNT 0.5 /CUMM (0.10-0.60); BASOPHIL % 0.5 % (0.0-2.0); EOSINOPHIL % 1.2 % (0-5); GRANULOCYTE % 60.2 % (42.2-75.2); HEMATOCRIT 37.9 % (37-47); MEAN CORPUSCULAR VOLUME 90.9 FL (81.0-99.0); PLATELET COUNT 298 /CUMM (130-400); RBC DISTRIBUTION WIDTH 14.4 % (11.5-14.5); RED BLOOD CELL CT 4.17 /CUMM (4.20-5.40); WHITE BLOOD CELL COUNT 7.5 /CUMM (4.8-10.8)
--- NOTE | 2017-03-21 08:42 | CT SCAN REPORT ---
EXAMINATION: CT ABDOMEN AND PELVIS WITHOUT CONTRAST CLINICAL INFORMATION: Bilateral flank pain. Black stool. Presumptive diagnosis; diverticulitis. COMPARISON: CT abdomen pelvis dated 01/07/2017. TECHNIQUE: Multidetector volumetric imaging was performed from the superior aspect of the liver through the pubic symphysis. Sagittal and coronal reformatted images were obtained on the technologist's workstation. DLP: 1111.32 mGy-cm FINDINGS: LUNG BASES: The lung bases are clear. There is no pleural effusion. The heart is normal in size. No pericardial effusion. LIVER, GALLBLADDER, AND BILIARY TREE: The liver is enlarged measuring up to 23 cm in length. It demonstrates homogeneous, decreased attenuation consistent with fatty infiltration. There is no intrahepatic biliary ductal dilation. The gallbladder is not visualized. Correlate with surgical history. PANCREAS: Unremarkable. SPLEEN: Unremarkable. ADRENAL GLANDS: Unremarkable. KIDNEYS AND URETERS: The kidneys are normal in size. There is a subcentimeter low-attenuation lesion within the right kidney. This lesion is too small for definitive characterization. No hydronephrosis, hydroureter, or calculi seen. No perinephric stranding. BLADDER: Small punctate calcification associated with the dome of the bladder, unchanged when compared with prior examination. The partially distended urinary bladder is otherwise unremarkable. GASTROINTESTINAL TRACT: There is a small hiatal hernia. The small and large bowel are normal in caliber. There is mild sigmoid colon diverticulosis. The appendix is unremarkable. ABDOMINAL WALL: There is a small fat-containing umbilical hernia. LYMPH NODES: No lymphadenopathy. VASCULAR: No aortic aneurysm. PELVIC VISCERA: The uterus is surgically absent. No adnexal mass. OSSEOUS STRUCTURES: There are significant degenerative changes at L5-S1 characterized by intervertebral disc space narrowing, osteophytosis, endplate sclerosis and Schmorl's node formation. IMPRESSION: 1. No acute abnormality is detected within the abdomen or pelvis. 2. Mild hepatomegaly. 3. Hepatic steatosis.
[2017-03-21 09:19] VITALS: BP 121/70
[2017-03-21] MEDS ORDERED: ULTRAM50 M1 PO (09:47)
[2017-03-21] MEDS ORDERED: OMEPRAZOLE40 M1 PO (09:47)
== END 2017-03-21 10:03 | disposition left against medical advice (07) ==
LOC: ERH 06:51
PROVIDERS: Emergency Medicine
DX: K76.0 Fatty (change of) liver, not elsewhere classified (principal); K92.1 Melena; R10.12 Left upper quadrant pain; E11.9 Type 2 diabetes mellitus without complications; Z79.84 Long term (current) use of oral hypoglycemic drugs; E03.9 Hypothyroidism, unspecified
CPT/HCPCS: 74176; 81001; 96361; 96374; 96375; J1885; J2405; J7040

== ENCOUNTER 2017-05-03 01:05 | Emergency (ER) | payer OTHER ==
[~2017-05-03] VITALS: Ht 152.4 cm; Wt 100.2 kg
[~2017-05-03 01:05] MED LIST changes: +OMEPRAZOLE40 M1 PO; +ULTRAM50 M1 PO
[2017-05-03 02:12] VITALS: BP 128/90
--- NOTE | 2017-05-03 02:13 | ED UPPER/LOWER EXTREMITY COMPL ---
History of Present Illness General Chief Complaint: Lower Extremity Problems Stated Complaint: PER ,"SWOLLEN FOOT" RIGHT Source: patient Exam Limitations: no limitations Vital Signs & Intake/Output Vital Signs & Intake/Output Vital Signs Date Time Temp Pulse Resp B/P B/P Pulse O2 O2 Flow FiO2 Mean Ox Delivery Rate 05/03 0212 97.6 78 18 128/90 99 Room Air Allergies Coded Allergies: Penicillins (RASH AND ITCHING 10/17/15) shellfish derived (RASH ITCHING 10/17/15) Reconcile Medications Alendronate Sodium 70 MG TABLET 1 TAB PO QW BONE (Reported) in the morning, at least 30 minutes before the first food, beverage, or medication of the day Atorvastatin Calcium 20 MG TABLET 1 TAB PO QPM CHOLESTEROL (Reported) Calcium Carbonate/Vitamin D3 (Calcium + Vitamin D Tablet) 1 EACH TABLET 1 TAB PO BID SUPPLEMENT (Reported) Cephalexin (Keflex) 500 MG CAPSULE 1 CAP PO 4 TIMES/DAY INFECTION X 7 DAYS Cyclobenzaprine HCl 5 MG TABLET 1 TAB PO TIDPRN PRN pain Eluxadoline (Viberzi) 75 MG TABLET 1 TAB PO BID GI (Reported) Gabapentin 300 MG CAPSULE 1 CAP PO TID NEUROPATHY (Reported) Hydrochlorothiazide 12.5 MG TABLET 1 TAB PO DAILY WATER PILL (Reported) Ibuprofen 600 MG TABLET 1 TAB PO TID PRN PAIN with food Levothyroxine Sodium 150 MCG TABLET 1 TAB PO DAILY AC THYROID (Reported) Lisinopril 10 MG TABLET 1 TAB PO DAILY BP (Reported) Lotrisone (Lotrisone Cream) 1 %-0.05 % CREAM..G. 1 EPIFANIO TOP TID FOOT INFECTION apply to affected area(s) X 7 DAYS Metformin HCl 1,000 MG TABLET 1 TAB PO BID DIABETES (Reported) Montelukast Sodium 10 MG TABLET 1 TAB PO DAILY ALLERGIES/ASTHMA (Reported) Omeprazole 40 MG CAPSULE.DR 1 CAP PO DAILY STOMACHE ACID Ondansetron (Zofran Odt) 4 MG TAB.RAPDIS 1 TAB SL TID nausea Oxycodone HCl/Acetaminophen (Percocet 5-325 MG Tablet) 5 MG-325 MG TABLET 1 TAB PO BID PRN pain Tramadol HCl (Ultram) 50 MG TABLET 1 TAB PO Q6P PRN PAIN Travoprost (Travatan Z) 0.004 % DROPS 1 GTT OU QPM BOTH EYES (Reported) Triage Note: SEE NURSES NOTES Triage Nurses Notes Reviewed? yes Onset: Gradual Duration: day(s): Timing: recent history Severity: moderate Pain/Injury Location: Right: Foot. Method of Injury: unknown Modifying Factors: Worsens With: movement. Associated Symptoms: RIGHT FOOT SWELLING HPI: 56 YO WOMAN h/o diabetes, presents with pain and discomfort between her 4th and 5th digits, with painful scaling. She also notes mild swelling and diffuse tenderness in the 4-5 cm around her 4th and 5th digits. No significant drainage. No trauma. She is otherwise well. Past History Travel History Traveled to [place] past 21 day No Medical History Any Pertinent Medical History? 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 No Review of Systems Review of Systems Constitutional: Reports: no symptoms. EENTM: Reports: no symptoms. Respiratory: Reports: no symptoms. Cardiovascular: Reports: no symptoms. Gastrointestinal/Abdominal: Reports: no symptoms. Genitourinary: Reports: no symptoms. Musculoskeletal: Reports: no symptoms. Skin: Reports: no symptoms. Neurological/Psychological: Reports: no symptoms. Hematologic/Endocrine: Reports: no symptoms. Immunological: Reports: no symptoms. All Other Systems: Reviewed and Negative Physical Exam Physical Exam General Appearance: well developed/nourished, mild distress Head: atraumatic Eyes: Bilateral: normal appearance. Ears, Nose, Throat: normal pharynx, normal ENT inspection, hearing grossly normal Neck: normal inspection, supple Cardiovascular/Respiratory: regular rate/rhythm Back: normal inspection Foot Right: swelling, peeling skin w/ tenderness between 4th and 5th digits c/w tinea pedis. minimal tenderness around 4th and 5th digits c/w mild cellulitis. Skin: intact, normal color, warm/dry Lymphatic: no anterior cervical abbi Progress Differential Diagnosis: cellulitis, tinea pedis Plan of Care: oral antibiotics for a mild superimposed infection from likely tinea pedis. Departure Departure Disposition: HOME OR SELF CARE Condition: Stable Clinical Impression Primary Impression: Tinea pedis Secondary Impressions: Cellulitis Referrals: Patient Has No Primary Care Dr (PCP/Family) Departure Forms: Customer Survey General Discharge Information Prescriptions: Current Visit Scripts Lotrisone (Lotrisone Cream) 1 EPIFANIO TOP TID #30 GM apply to affected area(s) X 7 DAYS Cephalexin (Keflex) 1 CAP PO 4 TIMES/DAY #28 CAP X 7 DAYS Ibuprofen 1 TAB PO TID PRN PAIN #30 TAB with food
[2017-05-03] MEDS ORDERED: IBUPROFEN600 M1 PO (02:14)
[2017-05-03] MEDS ORDERED: KEFLEX500 M1 PO (02:14)
[2017-05-03] MEDS ORDERED: LOTRISONE CREAM15 G1 TOP (02:14)
== END 2017-05-03 02:53 ==
LOC: ERH 01:05
DX: B35.3 Tinea pedis (principal); L03.90 Cellulitis, unspecified

== ENCOUNTER 2017-07-04 09:58 | Emergency (ER) | payer OTHER ==
[~2017-07-04] VITALS: Ht 152.4 cm; Wt 103.4 kg
[~2017-07-04 09:58] MED LIST changes: +IBUPROFEN600 M1 PO; +KEFLEX500 M1 PO; +LOTRISONE CREAM15 G1 TOP
--- NOTE | 2017-07-04 11:24 | ED GENERAL ADULT ---
History of Present Illness General Chief Complaint: Headache Stated Complaint: LUND XS 2 WEEKS Source: patient, family Exam Limitations: language barrier Vital Signs & Intake/Output Vital Signs & Intake/Output Vital Signs Date Time Temp Pulse Resp B/P B/P Pulse O2 O2 Flow FiO2 Mean Ox Delivery Rate 07/04 1555 98.1 74 16 115/59 99 Room Air 07/04 1225 Room Air 07/04 1225 98.3 75 18 158/79 97 Room Air 07/04 1004 98.6 73 18 162/82 98 Room Air Allergies Coded Allergies: Penicillins (RASH AND ITCHING 10/17/15) shellfish derived (RASH ITCHING 10/17/15) Reconcile Medications Alendronate Sodium 70 MG TABLET 1 TAB PO QW BONE (Reported) in the morning, at least 30 minutes before the first food, beverage, or medication of the day Atorvastatin Calcium 20 MG TABLET 1 TAB PO QPM CHOLESTEROL (Reported) Calcium Carbonate/Vitamin D3 (Calcium + Vitamin D Tablet) 1 EACH TABLET 1 TAB PO BID SUPPLEMENT (Reported) Cephalexin (Keflex) 500 MG CAPSULE 1 CAP PO 4 TIMES/DAY INFECTION X 7 DAYS Cyclobenzaprine HCl 5 MG TABLET 1 TAB PO TIDPRN PRN pain Eluxadoline (Viberzi) 75 MG TABLET 1 TAB PO BID GI (Reported) Gabapentin 300 MG CAPSULE 1 CAP PO TID NEUROPATHY (Reported) Hydrochlorothiazide 12.5 MG TABLET 1 TAB PO DAILY WATER PILL (Reported) Ibuprofen 600 MG TABLET 1 TAB PO TID PRN PAIN with food Levothyroxine Sodium 150 MCG TABLET 1 TAB PO DAILY AC THYROID (Reported) Lisinopril 10 MG TABLET 1 TAB PO DAILY BP (Reported) Lotrisone (Lotrisone Cream) 1 %-0.05 % CREAM..G. 1 EPIFANIO TOP TID FOOT INFECTION apply to affected area(s) X 7 DAYS Metformin HCl 1,000 MG TABLET 1 TAB PO BID DIABETES (Reported) Montelukast Sodium 10 MG TABLET 1 TAB PO DAILY ALLERGIES/ASTHMA (Reported) Naproxen (Naprosyn) 500 MG TABLET 1 TAB PO BID PRN headache Omeprazole 40 MG CAPSULE.DR 1 CAP PO DAILY STOMACHE ACID Ondansetron (Zofran Odt) 4 MG TAB.RAPDIS 1 TAB SL TID nausea Oxycodone HCl/Acetaminophen (Percocet 5-325 MG Tablet) 5 MG-325 MG TABLET 1 TAB PO BID PRN pain Tramadol HCl (Ultram) 50 MG TABLET 1 TAB PO Q6P PRN PAIN Travoprost (Travatan Z) 0.004 % DROPS 1 GTT OU QPM BOTH EYES (Reported) Triage Note: 56 YO FEAMLE TO TRIAGE WITH , PT CLOVER NEPALESE SPEAKING, HERE TO TRANSLATE. PER PT HAS BEEN C/O HEADAHCE X2 WEEKS, STATES IT STARTED IN THE FRONT OF HER HEAD AND NOW HAS MOVED TO THE BACK. +PHOTOSENSITIVITY. C/O FEELING "NOISE" IN HER BIALTERAL EARS. DENIES N/V. STATES HAS BEEN TAKING MOTRIN/TYLENOL/SINUS MEDICATION WITHOUT RELIEF. Triage Nurses Notes Reviewed? yes Onset: Gradual Duration: day(s): Timing: constant HPI: 56-year-old female with history of hypertension, hyperlipidemia, diabetes, hypothyroid presenting with headache 2 weeks. Reports a frontal headache that radiates to the back of her head. Feels like a throbbing sensation. Headache has been waxing and waning for the past 2 weeks, but never fully goes away. Pain is associated with phonophobia and photophobia. No head trauma. Not on any anticoagulation. No nausea or vomiting or visual changes. No fevers. Patient has been seen in the emergency department for headaches in the past and had good relief after IV fluids, Reglan, Toradol. Has been using Tylenol, Motrin, and sinus medication at home without relief. (Irina Clay) Past History Travel History Traveled to [place] past 21 day No Medical History Any Pertinent Medical History? 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 No (Irnia Clay) Review of Systems Review of Systems Constitutional: Reports: no symptoms. EENTM: Reports: no symptoms. Respiratory: Reports: no symptoms. Cardiovascular: Reports: no symptoms. GI: Reports: no symptoms. Genitourinary: Reports: no symptoms. Musculoskeletal: Reports: no symptoms. Skin: Reports: no symptoms. Neurological/Psychological: Reports: headache. Denies: numbness, paresthesia. Hematologic/Endocrine: Reports: no symptoms. Immunologic/Allergic: Reports: no symptoms. (Irina Clay) Physical Exam Physical Exam General Appearance: well developed/nourished, no apparent distress, alert, awake , comfortable Head: atraumatic, normal appearance Eyes: Bilateral: PERRL, EOMI. Neck: normal inspection, supple, full range of motion Respiratory: normal breath sounds, lungs clear Cardiovascular: regular rate/rhythm Gastrointestinal: soft, non-tender Back: normal inspection Extremities: normal inspection Neurologic/Psych: no motor/sensory deficits, awake, alert, oriented x 3, normal gait, normal mood/affect, vp revenue cycle II-XII nml as tested, Normal cerebellar function Reflexes: 2+: bicep (R), bicep (L), tricep (L), tricep (L), knee (R), knee (L), ankle (R), ankle (L). Skin: intact, normal color, warm/dry Core Measures ACS in differential dx? No CVA/TIA Diagnosis: No Sepsis Present: No Sepsis Focused Exam Completed? No (Irina Clay) Progress Differential Diagnoses I considered the following diagnoses in my evaluation of the patient:[ Nonspecific headache versus tension headache versus migraine, low concern for ICH versus meningitis vs pseudotumor cerebri] Plan of Care: Current Medications Sig/Audelia Start time Last Medication Dose Stop Time Status Admin Magnesium Sulfate 1 GM Q2H 07/04 1315 AC 07/04 (Mag Sulfate in D5) 07/04 1714 1533 Dextrose/Water 100 ML (D5W) Patient reports headache resolved after IV fluids, Toradol, Reglan, and half dose of magnesium. Requesting to be discharged home. Given naproxen when necessary pain. Counseled on supportive care, strict return precautions, and will follow up with her PMD. Initial ED EKG: none (Irina Clay) Departure Departure Disposition: HOME OR SELF CARE Condition: Stable Clinical Impression Primary Impression: Headache Referrals: Svitlana STANFORD,Tiffany Cuba (PCP/Family) Additional Instructions: Use naproxen as needed for pain. Follow-up with your primary care provider for reevaluation. Return to the emergency department for any new or worsening symptoms. Departure Forms: Customer Survey General Discharge Information Prescriptions: Current Visit Scripts Naproxen (Naprosyn) 1 TAB PO BID PRN headache #60 TAB (Irina Clay) PA/INSPECTOR REPAIRER Co-Sign Statement Statement: ED Attending supervision documentation- I saw and evaluated the patient. I have also reviewed all the pertinent lab results and diagnostic results. I agree with the findings and the plan of care as documented in the PA's/INSPECTOR REPAIRER's documentation. x I have reviewed the ED Record and agree with the PA's/INSPECTOR REPAIRER's documentation. [] Additions or exceptions (if any) to the PAs/INSPECTOR REPAIRER's note and plan are summarized below: [] (Noris GUZMAN,Moise) Critical Care Note Critical Care Note Critical Care Time: non-applicable (Irina Clay)
[2017-07-04] MEDS ORDERED: NAPROSYN500 M1 PO (15:37)
[2017-07-04 15:55] VITALS: BP 115/59
== END 2017-07-04 15:55 ==
LOC: ERH 09:58
DX: R51 Headache (principal)
CPT/HCPCS: 96374; 96375; J1200; J1885; J2765

== ENCOUNTER 2017-07-08 10:07 | Emergency (ER) | payer OTHER ==
[~2017-07-08] VITALS: Ht 152.4 cm; Wt 103.9 kg
--- NOTE | 2017-07-08 10:51 | ED GENERAL ADULT ---
History of Present Illness General Chief Complaint: General Adult Stated Complaint: PAIN AT IV SITE Source: patient Exam Limitations: no limitations Vital Signs & Intake/Output Vital Signs & Intake/Output Vital Signs Date Time Temp Pulse Resp B/P B/P Pulse O2 O2 Flow FiO2 Mean Ox Delivery Rate 07/08 1526 97.9 69 14 136/72 96 Room Air 07/08 1143 98 Room Air 07/08 1114 74 20 131/73 98 Room Air 07/08 1055 97.9 76 16 152/80 97 Room Air 07/08 1050 97.9 07/08 1012 98.3 83 18 147/80 98 Room Air Allergies Coded Allergies: Penicillins (RASH AND ITCHING 10/17/15) shellfish derived (RASH ITCHING 10/17/15) Triage Note: 56 YO FEMALE TO TRIAGE FOR EVAL OF L ARM. PT STATES SHE WAS IN THE ER A COUPLE DAYS AGO AND HAD AN IV IN THE LEFT ARM. STATES SINCE THEN HER ARM HAS BEEN SWELLING AND IS PAINFUL. Triage Nurses Notes Reviewed? yes Onset: Gradual Duration: day(s):, constant, changing over time, continues in ED, getting worse HPI: pt presents for evaluation of LUE pain along with periscapular pain. in addition pt is experiencing a bilateral flank pain radiating to both upper abd quadrants. pt was evaluated in the ED last week and had a LUE iv placed. there has been pain at the iv site as well as proximally. (Vaishnavi GUZMAN,Anand Pollock) Reconcile Medications Alendronate Sodium 70 MG TABLET 1 TAB PO QW BONE (Reported) in the morning, at least 30 minutes before the first food, beverage, or medication of the day Atorvastatin Calcium 20 MG TABLET 1 TAB PO QPM CHOLESTEROL (Reported) Baclofen 10 MG TABLET 1 TAB PO TIDPRN PRN muscle spasm/strain Calcium Carbonate/Vitamin D3 (Calcium + Vitamin D Tablet) 1 EACH TABLET 1 TAB PO BID SUPPLEMENT (Reported) Cyclobenzaprine HCl 5 MG TABLET 1 TAB PO TIDPRN PRN pain Eluxadoline (Viberzi) 75 MG TABLET 1 TAB PO BID GI (Reported) Gabapentin 300 MG CAPSULE 1 CAP PO TID NEUROPATHY (Reported) Gabapentin (Neurontin) 100 MG CAPSULE 1 CAP PO TID neuropathy Hydrochlorothiazide 12.5 MG TABLET 1 TAB PO DAILY WATER PILL (Reported) Ibuprofen 600 MG TABLET 1 TAB PO TID PRN PAIN with food Levothyroxine Sodium 150 MCG TABLET 1 TAB PO DAILY AC THYROID (Reported) Lisinopril 10 MG TABLET 1 TAB PO DAILY BP (Reported) Lotrisone (Lotrisone Cream) 1 %-0.05 % CREAM..G. 1 EPIFANIO TOP TID FOOT INFECTION apply to affected area(s) X 7 DAYS Metformin HCl 1,000 MG TABLET 1 TAB PO BID DIABETES (Reported) Montelukast Sodium 10 MG TABLET 1 TAB PO DAILY ALLERGIES/ASTHMA (Reported) Naproxen (Naprosyn) 500 MG TABLET 1 TAB PO BID PRN headache Omeprazole 40 MG CAPSULE.DR 1 CAP PO DAILY STOMACHE ACID Ondansetron (Zofran Odt) 4 MG TAB.RAPDIS 1 TAB SL TID nausea Oxycodone HCl/Acetaminophen (Percocet 5-325 MG Tablet) 5 MG-325 MG TABLET 1 TAB PO BID PRN pain Tramadol HCl (Ultram) 50 MG TABLET 1 TAB PO Q6P PRN PAIN Tramadol HCl (Ultram) 50 MG TABLET 1 TAB PO Q6P PRN severe pain Travoprost (Travatan Z) 0.004 % DROPS 1 GTT OU QPM BOTH EYES (Reported) (Moise Hamm MD) Past History Travel History Traveled to [place] past 21 day No Medical History Any Pertinent Medical History? 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 No (Vaishnavi GUZMAN,Anand Pollock) Review of Systems Review of Systems Constitutional: Reports: no symptoms. EENTM: Reports: no symptoms. Respiratory: Reports: no symptoms. Cardiovascular: Reports: no symptoms. GI: Reports: abdominal pain. Genitourinary: Reports: no symptoms. Musculoskeletal: Reports: see HPI. Skin: Reports: see HPI. Neurological/Psychological: Reports: no symptoms. Hematologic/Endocrine: Reports: no symptoms. Immunologic/Allergic: Reports: no symptoms. All Other Systems: Reviewed and Negative (Vaishnavi GUZMAN,Anand Pollock) Physical Exam Physical Exam General Appearance: see below Comments: Gen.: Well-nourished, well-developed, no acute respiratory distress. Head: Normocephalic, atraumatic. Eyes: Normal inspection bilaterally Ears: Normal inspection bilaterally Nose: Normal inspection Throat/mouth : Moist mucosa Neck: Supple, full range of motion, no goiter Heart: Regular rate and rhythm, no murmurs rubs or gallops Lungs: Clear to auscultation bilaterally with normal air entry Chest: Nontender Back: Normal range of motion, mild tenderness of the lumbar spine without associated soft tissue swelling ecchymoses or erythema Abdomen: Soft, epigastric tenderness with brief voluntary guarding but no rebound, nondistended, normal bowel sounds Extremities: Left upper extremity: Mild tenderness at the puncture site from previous IV, no palpable cords, mild soft tissue swelling proximally, the left upper extremity is neurovascularly intact distally. Neurologic: Cranial nerves grossly intact, speech is clear Skin: warm and dry Psychiatric: Calm, cooperative, no apparent delusions or hallucinations Core Measures ACS in differential dx? No CVA/TIA Diagnosis: No Sepsis Present: No Sepsis Focused Exam Completed? No (Vaishnavi GUZMAN,Anand Pollock) Progress Differential Diagnoses I considered the following diagnoses in my evaluation of the patient: Superficial thrombophlebitis, DVT, renal colic, aortic disease, pancreatitis, pulmonary embolism, pneumonia, musculoskeletal strain Plan of Care: Orders Procedure Date/time Status Consistent Carbohydrate 1 07/08 D Active TROPONIN LEVEL 07/08 1042 Complete MAGNESIUM 07/08 1042 Complete LIPASE 07/08 1042 Complete COMPREHENSIVE METABOLIC PANEL 07/08 1042 Complete CBC WITHOUT DIFFERENTIAL 07/08 1042 Complete EKG 07/08 1042 Active Laboratory Tests 07/08/17 1104: Anion Gap 16, Estimated GFR > 60, BUN/Creatinine Ratio 26.7 H, Glucose 209 H, Calcium 9.7, Magnesium 1.8, Total Bilirubin 0.4, AST 25, ALT 31, Alkaline Phosphatase 80, Troponin I < 0.01, Total Protein 7.2, Albumin 4.3, Globulin 2.9, Albumin/Globulin Ratio 1.5, Lipase 93, CBC w Diff NO MAN DIFF REQ, RBC 4.28, MCV 89.2, MCH 31.2 H, MCHC 35.0, RDW 13.8, MPV 8.4, Gran % 63.2, Lymphocytes % 30.0 , Monocytes % 5.5, Eosinophils % 0.9, Basophils % 0.4, Absolute Granulocytes 4.8 , Absolute Lymphocytes 2.3, Absolute Monocytes 0.4, Absolute Eosinophils 0.1, Absolute Basophils 0 Diagnostic Imaging: Discussed w/RAD: CT Scan, Ultrasound. Radiology Impression: PATIENT: YANET OSCAR PRESENT AGE: 56 PATIENT ACCOUNT NO: [id number] : 58 LOCATION: [facility] ORDERING PHYSICIAN: Anand Riggins MD SERVICE DATE: 07/08/17 EXAM TYPE : CAT - CT ABD & PELVIS W IV CONTRAST; CTA CHEST-PULMONARY EMBOLISM EXAMINATION: CT ANGIOGRAM OF THE CHEST WITH AND WITHOUT CONTRAST (CT PULMONARY ANGIOGRAM FOR PE) CONTRAST-ENHANCED CT OF THE ABDOMEN AND PELVIS CLINICAL INFORMATION: Left upper back and chest pain. Left abdomen and flank pain. COMPARISON: CT abdomen and pelvis from 03/21/2017. Chest x-ray from 09/25/2016 TECHNIQUE: Prior to contrast administration, noncontrast localization images were obtained. Subsequently, multidetector volumetric imaging was performed from the thoracic inlet to below the diaphragms following the administration of 95 mL Optiray 320 intravenous contrast. Additionally post contrast CT scanning of the abdomen and pelvis was acquired. No contrast reaction reported. Sagittal, coronal, and MIP oblique sagittal reformatted images were obtained on the CT workstation, uploaded to PACS, and reviewed. Total exam dose-length product 1840 mGy-cm. FINDINGS: Chest: QUALITY OF STUDY/CONTRAST BOLUS: Satisfactory PULMONARY ARTERIES: No central or segmental pulmonary emboli. THORACIC AORTA: No aneurysm or dissection. LUNG: There is a small area of groundglass attenuation in the right upper lobe (series 2 image 160). There is a 2 mm pulmonary nodule in the right middle lobe peripherally (series 2 image 205). There are mild dependent changes bilaterally. There is some platelike opacification within the lingula compatible with atelectasis or scar. The central airways appear patent. PLEURA: No pleural effusion or pneumothorax. MEDIASTINUM: Normal heart size. No pericardial effusion. No hilar or mediastinal lymphadenopathy. No evidence of septal bowing or right heart strain. CHEST WALL/AXILLA: No axillary or internal mammary lymphadenopathy. OSSEOUS STRUCTURES: No acute abnormality. Mild multilevel degenerative change of the thoracic spine. Abdomen/pelvis: Low attenuation of the liver, and hepatomegaly appear stable. The gallbladder is not visualized. No biliary ductal dilatation. The adrenal glands, spleen, and pancreas appear unremarkable. The kidneys enhance symmetrically with several bilateral stable small hypoattenuating foci which appear most compatible with cysts. No evidence of renal calculi. No abnormality along the ureters. The bladder is partially distended but appears unremarkable. There is scattered stool in the colon. A normal appendix is visualized. Loops of small bowel are normal in caliber. The stomach appears unremarkable. No adenopathy is evident. No ascites or free intraperitoneal air. The vascular structures appear unremarkable. There has been prior hysterectomy. No adnexal masses. There is a small fat-containing periumbilical hernia. No acute osseous abnormalities. There is stable spondylosis at L5-S1 without evidence of spondylolyses. IMPRESSION: 1. No evidence of central or segmental pulmonary embolism. 2. Small area of groundglass attenuation in the right upper lobe, possibly infectious/ inflammatory. A 2 mm pulmonary nodule in the right middle lobe. Per Fleischner 2017 guidelines, CT follow-up at 6-12 months can be performed to confirm persistence of groundglass abnormality. 3. Hepatic steatosis and hepatomegaly, stable. 4. Several hepatic hypoattenuating foci, statistically cysts. VTE: negative DICTATED BY: Kiera Berg MD DATE/TIME DICTATED:07/08/171333 SATELLITE INSTRUCTION FACILITATOR:[id number] DATE/TIME TRANSCRIBED:07/08/171333 CONFIDENTIAL, DO NOT COPY WITHOUT APPROPRIATE AUTHORIZATION. <Electronically signed in Other Vendor System> SIGNED BY: Kiera Berg MD 07/08/17 1350 Initial ED EKG: NSR, rate (73), CHRONIC ST CHANGES Prior EKG: unchanged Comments: 07/08/2017 1:24:53 PM I have updated Yanet and her on test results. Upon return from CAT scan she states that she felt like she was having an allergic reaction. To that regard physical examination is unremarkable and I suspect it was simply the flushing side effects of the contrast. I see no indication of an acute allergic reaction. She is also complaining of severe left arm pain, the same arm pain that she presents to the emergency department with. Physical examination reveals a neurovascularly intact left upper extremity with no obvious abnormalities. 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 (Vaishnavi GUZMAN,Anand Pollock) Radiology Impression: Normal triplex scan without evidence of deep or superficial venous thrombosis involving the left upper extremity. (Moise Hamm MD) Departure Departure Disposition: STILL A PATIENT Condition: Stable Referrals: Svitlana STANFORD,Tiffany Cuba (PCP/Family) Departure Forms: Customer Survey General Discharge Information (Vaishnavi GUZMAN,Anand Pollock) Departure Time of Disposition: 1634 Clinical Impression Primary Impression: Radiculopathy affecting upper extremity Secondary Impressions: Left arm pain Prescriptions: Current Visit Scripts Tramadol HCl (Ultram) 1 TAB PO Q6P PRN severe pain #30 TAB Baclofen 1 TAB PO TIDPRN PRN muscle spasm/strain #30 TAB Gabapentin (Neurontin) 1 CAP PO TID #30 CAP (Moise Hamm MD) Critical Care Note Critical Care Note Critical Care Time: non-applicable (Vaishnavi GUZMAN,Anand oPllock)
[2017-07-08 11:16] LABS: ABSOLUTE BASOPHIL COUNT 0 /CUMM (0.0-0.2); ABSOLUTE EOSINOPHIL COUNT 0.1 /CUMM (0.0-0.7); ABSOLUTE GRANULOCYTE CT 4.8 /CUMM (1.4-6.5); ABSOLUTE LYMPH COUNT 2.3 /CUMM (1.2-3.4); ABSOLUTE MONOCYTE COUNT 0.4 /CUMM (0.10-0.60); BASOPHIL % 0.4 % (0.0-2.0); EOSINOPHIL % 0.9 % (0-5); GRANULOCYTE % 63.2 % (42.2-75.2); HEMATOCRIT 38.2 % (37-47); MEAN CORPUSCULAR HGB 31.2 PG (27.0-31.0); MEAN CORPUSCULAR VOLUME 89.2 FL (81.0-99.0); MEAN PLATELET VOLUME 8.4 FL (7.4-10.4); PLATELET COUNT 305 /CUMM (130-400); RBC DISTRIBUTION WIDTH 13.8 % (11.5-14.5); RED BLOOD CELL CT 4.28 /CUMM (4.20-5.40); WHITE BLOOD CELL COUNT 7.6 /CUMM (4.8-10.8)
--- NOTE | 2017-07-08 13:50 | CT SCAN REPORT ---
EXAMINATION: CT ANGIOGRAM OF THE CHEST WITH AND WITHOUT CONTRAST (CT PULMONARY ANGIOGRAM FOR PE) CONTRAST-ENHANCED CT OF THE ABDOMEN AND PELVIS CLINICAL INFORMATION: Left upper back and chest pain. Left abdomen and flank pain. COMPARISON: CT abdomen and pelvis from 03/21/2017. Chest x-ray from 09/25/2016 TECHNIQUE: Prior to contrast administration, noncontrast localization images were obtained. Subsequently, multidetector volumetric imaging was performed from the thoracic inlet to below the diaphragms following the administration of 95 mL Optiray 320 intravenous contrast. Additionally post contrast CT scanning of the abdomen and pelvis was acquired. No contrast reaction reported. Sagittal, coronal, and MIP oblique sagittal reformatted images were obtained on the CT workstation, uploaded to PACS, and reviewed. Total exam dose-length product 1840 mGy-cm. FINDINGS: Chest: QUALITY OF STUDY/CONTRAST BOLUS: Satisfactory PULMONARY ARTERIES: No central or segmental pulmonary emboli. THORACIC AORTA: No aneurysm or dissection. LUNG: There is a small area of groundglass attenuation in the right upper lobe (series 2 image 160). There is a 2 mm pulmonary nodule in the right middle lobe peripherally (series 2 image 205). There are mild dependent changes bilaterally. There is some platelike opacification within the lingula compatible with atelectasis or scar. The central airways appear patent. PLEURA: No pleural effusion or pneumothorax. MEDIASTINUM: Normal heart size. No pericardial effusion. No hilar or mediastinal lymphadenopathy. No evidence of septal bowing or right heart strain. CHEST WALL/AXILLA: No axillary or internal mammary lymphadenopathy. OSSEOUS STRUCTURES: No acute abnormality. Mild multilevel degenerative change of the thoracic spine. Abdomen/pelvis: Low attenuation of the liver, and hepatomegaly appear stable. The gallbladder is not visualized. No biliary ductal dilatation. The adrenal glands, spleen, and pancreas appear unremarkable. The kidneys enhance symmetrically with several bilateral stable small hypoattenuating foci which appear most compatible with cysts. No evidence of renal calculi. No abnormality along the ureters. The bladder is partially distended but appears unremarkable. There is scattered stool in the colon. A normal appendix is visualized. Loops of small bowel are normal in caliber. The stomach appears unremarkable. No adenopathy is evident. No ascites or free intraperitoneal air. The vascular structures appear unremarkable. There has been prior hysterectomy. No adnexal masses. There is a small fat-containing periumbilical hernia. No acute osseous abnormalities. There is stable spondylosis at L5-S1 without evidence of spondylolyses. IMPRESSION: 1. No evidence of central or segmental pulmonary embolism. 2. Small area of groundglass attenuation in the right upper lobe, possibly infectious/inflammatory. A 2 mm pulmonary nodule in the right middle lobe. Per Fleischner 2017 guidelines, CT follow-up at 6-12 months can be performed to confirm persistence of groundglass abnormality. 3. Hepatic steatosis and hepatomegaly, stable. 4. Several hepatic hypoattenuating foci, statistically cysts. VTE: negative
[2017-07-08 15:26] VITALS: BP 136/72
--- NOTE | 2017-07-08 16:22 | ULTRASOUND REPORT ---
EXAMINATION: US TRIPLEX UPPER EXTREMITY, LEFT CLINICAL INFORMATION: Severe left arm pain and swelling. History of the prior superficial thrombophlebitis. COMPARISON: None TECHNIQUE: Color-flow triplex imaging with spectral analysis and compression Doppler were performed on the left upper extremity. FINDINGS: Respiratory variation, normal compression and augmented flow are noted throughout the left upper extremity. The visualized internal jugular, subclavian, axillary, and brachial veins show no evidence of deep venous thrombosis. The cephalic and basilic veins are also seen to be patent. No focal abscess or collection was identified. IMPRESSION: Normal triplex scan without evidence of deep or superficial venous thrombosis involving the left upper extremity.
[2017-07-08] MEDS ORDERED: ULTRAM50 M1 PO (16:40)
[2017-07-08] MEDS ORDERED: BACLOFEN10 M1 PO (16:40)
[2017-07-08] MEDS ORDERED: NEURONTIN100 M1 PO (16:40)
[2017-10-13] MEDS ORDERED: DICYCLOMINE HCL10 M1 PO (00:20)
[2017-10-13] MEDS ORDERED: ZOFRAN4 M2 PO (00:20)
[2017-10-13] MEDS ORDERED: PERCOCET 5-3251 EACH PO (00:20)
[2017-10-13] MEDS ORDERED: PRILOSEC OTC20 M1 PO (01:03)
== END 2017-07-08 16:51 ==
LOC: ERH 10:07
PROVIDERS: Emergency Medicine
DX: M54.10 Radiculopathy, site unspecified (principal); M79.602 Pain in left arm
CPT/HCPCS: 74177; 93005; 93010; 96374; 96375; J0131; J1885; J2405